=== PATIENT | male | born 1970 | race Caucasian/White ===

== ENCOUNTER 2018-09-07 16:55 | Inpatient (IN) | payer BC ==
[2018-09-07] MEDS ORDERED: BISACODYL 10 MG SUPP PR PRN (17:36)
[2018-09-07] MEDS ORDERED: ACETAMINOPHEN 325 MG TAB PO PRN (17:36)
[2018-09-07] MEDS ORDERED: CARBOXYMETHYLCELLULOSE 1% 0.4 ML DROPERETTE EACHEYE PRN (17:45)
--- NOTE | 2018-09-07 17:48 | PDOREHIP ---
Admission [facility] - Admission - 3 Day Assessment Period Admission Date/Day 1: 09/07/18 Day 2: 09/08/18 Day 3: 09/09/18 - Active Diagnoses Comorbidities and Co-existing Conditions at Admission: [id number]. None of the Above - Skin Conditions # Stage 1 Pressure Ulcers-Admission: 0 # Stage 2 Pressure Ulcers-Admission: 0 # Stage 3 Pressure Ulcers-Admission: 0 # Stage 4 Pressure Ulcers-Admission: 0 # Unstageable Pressure Ulcers (Non-remove Dress)-Admission: 0 # Unstageable Pressure Ulcers (Slough/Eschar)-Admission: 0
--- NOTE | 2018-09-07 20:40 | GHP ---
[f rep st] HISTORY AND PHYSICAL DATE OF ADMISSION: 09/07/2018 TIME OF EVALUATION: 1700 hours. REFERRING FACILITY: [facility]. IMPAIRMENT GROUP: 09, cardiac. DATE OF ONSET: 08/22/2018. REFERRING PHYSICIAN: Dr. Otf Andrews MD. REHABILITATION DIAGNOSIS: Debility with bilateral upper greater than lower extremity weakness secondary to anoxic brain injury due to VT/VF cardiac arrest. ETIOLOGIC DIAGNOSIS: Anoxic brain injury. DATE OF SURGERY: 09/05 and 09/06/18 HISTORY OF PRESENT ILLNESS: Patient is a 47-year-old male admitted to [facility] Emergency Department on 08/22/2018 after he collapsed at work. A co-worker started CPR, and he received 1 shock with AED prior to arrival of EMS. Once EMS arrived on the scene, he was found to be in VT/VF arrest. He was shocked 1 more time and was given 3 rounds of epinephrine. On arrival to the emergency department, he was in torsades and was given magnesium and epinephrine. 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 Cardiac catheterization showed patent vessels, and he was found to have severe dilated cardiomyopathy with initial ejection fraction of 13%. Targeted temperature management was performed , and cardiogenic shock improved. He was subsequently extubated on 08/27. 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 MRI confirmed global anoxic brain injury. Patient's mental status and vision slowly improved during hospitalization. Because of the patient's dilated cardiomyopathy and low ejection fraction, an AICD was placed prior to discharge. This was performed initially on 09/05 and replacement of leads on 09/06. He was then placed on Toprol-XL, amiodarone, and spironolactone. Cardiology team felt that it was unwise to start Entresto secondary to low blood pressure but felt that this may be started as an outpatient as his blood pressure improves. He was evaluated by Dr. Trinh of [facility]. CT of the brain was negative for acute intracranial abnormalities. He was stable medically, although by chart review was noted that he is prone to impulsiveness and had an episode where he fell after he tried to climb over the bed rails. He did not hit his head, and there was no injury sustained secondary to that. His current functional status is that he is max assist x2 and has difficulty maintaining trunk control and control of his upper extremities secondary to weakness and upper extremity/trunk ataxia. Ambulation at [facility] was limited to less than 50 feet, according to his girlfriend who accompanied him today. MRI of the brain obtained on 08/30 showed mild changes in the cortex of the bilateral frontal and parietal lobes concerning for hypoxic injury. The patient initially had fevers which delayed placement of the AICD. This was felt to be due to sinusitis, which was treated with Augmentin. STUDIES AND LABS: During his hospital stay: LFTs were initially elevated as follows: AST 108, ALT 109. NT pro brain natriuretic peptide was 1464 on . Procalcitonin on 08/29 was 0.92. BMP from 09/07/2018 as follows: Sodium 138, potassium 4.2, chloride 108, CO2 of 23, BUN 13, creatinine 0.71, calcium 7.9, glucose 102. White blood count on 09/04 was 8.26. Hemoglobin and hematocrit on 09/04 were 10.4 and 32.1. The patient had multiple imaging studies including chest x-ray, AP and lateral, on 09/07, which showed no radiographic evidence of acute cardiopulmonary disease. Single view of the abdomen showed no obstruction. Nasogastric tube in stomach. CT of the cervical spine from 08/26 showed straightening of the normal cervical lordosis. Alignment otherwise maintained. No fractures or evidence of traumatic subluxation. Multilevel degenerative changes of cervical spine without moderate or severe spinal stenosis. CT of the head without contrast on 09/01 showed no evidence of acute intracranial abnormality by contrast CT of the head without contrast on 08/27 with no evidence of acute intracranial abnormality, acute sinusitis. MRI of the brain without intravenous contrast on 08/30 showed mild global anoxic injury, predominantly involving frontal and parietal cortices. MRI of the cervical spine without contrast on 08/30 revealed no substantial cervical spinal cord signal abnormality or neural foraminal narrowing. PRECAUTIONS: Fall risk. The patient lacks insight as to current level of debility and may be prone to impulsive behavior. Aspiration precautions. Left upper extremity is pinned to the chest wall to prevent movement above level of heart for the next 72 hours. AICD precautions ACTIVE COMORBIDITIES: Hyperthyroidism. PAST MEDICAL HISTORY: Hyperthyroidism, although the past medical records may incorrectly state hypothyroidism. The patient unable to give further details regarding this. PAST SURGICAL HISTORY: Has pinning in one of his elbows but could not recall which one. Status post AICD placement 09/06/2018. PREHOSPITAL MEDICATIONS: None. ADMISSION MEDICATIONS: Amiodarone 200 mg p.o. daily. Carboxymethylcellulose 1 drop each eye 3 times daily p.r.n. Magnesium oxide 400 mg p.o. twice daily. Metoprolol succinate 12.5 mg p.o. daily. Spironolactone 12.5 mg p.o. daily. Flomax 0.4 mg p.o. at bedtime. ALLERGIES: Ibuprofen. PSYCHOSOCIAL HISTORY: He has a girlfriend. He has a 10-year-old son with another woman, but they are currently not residing together. His son lives in [place]. He is a nonsmoker and rarely drinks alcohol. He does not have a history of substance abuse. 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 FAMILY HISTORY: Noncontributory. REVIEW OF SYSTEMS: HEENT: Denies dizziness or tinnitus. Denies jaw pain. CARDIAC: Denies angina-like symptoms. Denies tongue or jaw claudication. PULMONARY: Denies shortness of breath. GASTROINTESTINAL: Denies abdominal pain or constipation. GENITOURINARY: Denies bladder incontinence. Denies dysuria. NEUROLOGICAL: He reports blurred vision at a distance. His girlfriend added that he feels that the room is dark when it is brightly lit. He does not state that he has weakness in the upper or lower extremities, although his girlfriend confirms this. She reports that his strength is returning, but he does have truncal ataxia. He reports intermittent tingling sensation in the right upper extremity. MUSCULOSKELETAL: He denies neck or low back pain. Denies arthralgias or myalgias. The remainder of the 10-point review of systems was negative. PHYSICAL EXAM: VITAL SIGNS: Vital signs are pending. CONSTITUTIONAL: WDWN, pleasant male, NAD. PSYCH: Flat affect. He answered most questions with simple yes or no answers and did not elaborate unless prompted. HEENT: Pupils equal, round, reactive to light and accommodation. EOMI. Mucous membranes are moist. Dentition is good. NECK: No JVD. Normal range of motion right and left lateral rotation, flexion, and extension. CARDIOVASCULAR: Regular rate and rhythm. Possible systolic ejection murmur with heart sounds lateral to the right sternal border. He has a well-healing surgical incision, status post AICD placement. LUNGS: Clear to auscultation bilaterally. ABDOMEN: Soft, nontender. Normoactive bowel sounds in all 4 quadrants. EXTREMITIES: No upper or lower extremity edema. Negative Homans test bilaterally. NEUROLOGIC: He is alert and oriented to place and month but not date. Could not name the season. He was able to name 3/3 objects immediately after they were recited to him and 2/3 objects 5 minutes later, and with prompting, he remembered the 3rd object. He was able to identify colors and shapes. He was able to perform a 3- step sequencing event without too much difficulty. Cranial nerves 2 through 12 were grossly intact. Left upper extremity strength was not tested secondary to cardiac precautions. Right upper extremity: Active right glenohumeral forward flexion 120 degrees with ataxia noted. He does demonstrate 4/5 biceps and triceps, although there is limb ataxia present. 3+ 4-/5 wrist and finger extensors. 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 Lower extremity motor exam : 4+/5 right and left hip flexors, quadriceps, hamstrings, ankle dorsiflexors. Left ankle splint in place. Right ankle boot in place. No upper or lower extremity sensory deficits. CURRENT LEVEL OF FUNCTION: Per the preadmission screen: Diet/feeding/swallowing : Regular diet with thin liquids, max assist with tactile cues, 1-to-1 supervision, 1-to-1 cuing, aspiration PNA, set up suction in the room. Grooming max assist with verbal cuing. Bathing TBA. Dressing max assist. Toileting dependent, bladder dependent. Patient with urinary retention requiring straight catheterization p.r.n. Bowel level of assistance dependent. Bed mobility mod assist x2. Transfers min assist x2 with Fiorella Stedy lift. Equipment FWW balance. Sitting with mod assist. Standing NT. Endurance fair. Gait: Ambulates 10 feet with max assist x2 with verbal and tactile cues. Wheelchair Tilt in Space. Stairs TBA. Cognition MoCA . Patient with excellent recall and mild deficit and word retrieval. Patient requires increased processing time. Safety precautions: Fall, impaired cognition. Lower extremity strength/range of motion: Bilateral lower extremities, able to lift lower extremities off the bed. Upper extremity strength/range of motion: Bilateral upper extremities able to lift but difficulty with fine motor control. Functional status comments: Patient has improved cortical blindness. IMPRESSION: This is a 47-year-old male who had a witnessed cardiac event secondary to ventricular tachycardia/ventricular fibrillation resulting in cardiac arrest. The patient was intubated and later determined to have suffered from anoxic brain injury with resultant encephalopathy and cortical blindness. Per review of medical records and the patient's girlfriend who was present today, he continues to make improvements in his mental status as well as improvement in his vision. He has trunk and upper limb ataxia as well as gait dysfunction, most likely which is due to the anoxic brain injury. He is status post AICD on 09/06. His goal is to complete rehabilitation stay and return to home with his girlfriend with reasonable goals of standby assist for ADLs, ambulation, and performing executive functions. He will have physical, occupational, and speech and language pathology 60 minutes per day for each discipline 5 to 7 days per week. Because he is reported to be a little lethargic in the mornings, his therapies, particularly physical and occupational therapy may have to be scheduled in the late morning or afternoon. PLAN: 1. Ventricular tachycardia/ventricular fibrillation cardiac arrest. He is found to have nonischemic cardiomyopathy with ejection fraction of 16% and is status post AICD on 09/05. Continue metoprolol, amiodarone, and spironolactone. We will monitor for signs of heart failure. Monitor blood pressures daily. 2. Encephalopathy secondary to anoxic brain injury. MRI brain from 08/30 shows global anoxic injury. He has impaired short-term memory, which according to chart review, has been improving. His girlfriend also states that his short- term memory has been improving but is patchy going back to 5 years. He has also demonstrated impulsive behavior which resulted in one fall during previous hospitalization. May consider neuro stimulant to decrease impulsivity. Will discuss with Dr. Dolan. Patient is also very restless at night as reported by nursing staff and girlfriend. Will consider sleep aid that will not affect neuro recovery from anoxic brain injury. 3. Impaired vision/probable cortical blindness, which has been clearly improving, but at some point. OT to evaluate for extent of vision loss. He may benefit from neuro-ophthalmology consult. He would also benefit from evaluation for corrective lenses. 4. Nonischemic cardiomyopathy. Echo on 08/29/2018 showed severe global hypokinesis with ejection fraction of 16%. We will continue to monitor for signs of heart failure and hypertension. Cardiology team was unable to start Entresto secondary to low blood pressure but suggested this may be able to be started as an outpatient. 5. Urinary retention. Monitor daily ins and outs. Bladder scan to measure postvoid residuals x3, and if not elevated, may discontinue. If elevated above 300 cc, then straight cath p.r.n. 6. History of thyroid dysfunction. Premorbidly he was told that he had hypothyroidism. However, lab studies at [facility] showed TSH of 0.016 and FT4 1.32. By chart review, it looks like he was on medications for hyperthyroidism including methimazole and propranolol. We will repeat thyroid function studies during inpatient hospitalization. 7. Deep venous thrombosis prophylaxis. Sequential compression devices have been ordered. Patient was previously on subcutaneous heparin, however, we will not initiate anticoagulant medications at this time. Also hesitant to place patient on anticoagulation as he is impulsive and a fall risk with concerns for head injury. FOLLOWUP: Dr. Trinh, [facility]; Dr. Omar Flores, Cardiology. /[id number]/MODL MTDD
[2018-09-07] MEDS: SENNOSIDES/DOCUSATE SODIUM TAB PO SCH (21:58)
[2018-09-07] MEDS: MAGNESIUM OXIDE 400 MG TAB PO SCH (21:59)
[2018-09-07] MEDS: TAMSULOSIN HCL 0.4 MG CAP PO SCH (21:59)
[2018-09-08 05:27] LABS: PLATELET COUNT 396 10^3/uL (150-400)
[2018-09-08] MEDS: MAGNESIUM OXIDE 400 MG TAB PO SCH ×2 (08:25→23:19)
[2018-09-08] MEDS: METOPROLOL SUCCINATE XR 25 MG TAB PO SCH (08:25)
[2018-09-08] MEDS: SENNOSIDES/DOCUSATE SODIUM TAB PO SCH ×2 (08:25→23:19)
[2018-09-08] MEDS: SPIRONOLACTONE 25 MG TAB PO SCH (08:26)
[2018-09-08] MEDS: AMIODARONE HCL 200 MG TAB PO SCH (08:26)
--- NOTE | 2018-09-08 13:28 | SOAPPROG ---
SOAP Progress Note Assessment/Plan: Assessment: A ventricular tachycardia/ventricular fibrillation cardiac arrest. He is found to have nonischemic cardiomyopathy with ejection fraction of 16% status post AICD on 09/05 with reattachment of leads on 09/06. Continues with left upper extremity postsurgical precautions. Nurse case management is confirming when these restrictions can be lifted. Nurse case management also enquiring about AICD precautions. Continue to monitor for signs of heart failure Encephalopathy secondary to anoxic brain injury. MRI brain from 08/30 shows global anoxic injury. He he has impaired short-term memory. He is unable to form new memory at this time. He demonstrates impulsive behavior with some possible sundowning. Will discuss with Dr. Dolan regarding his thoughts about medications to reduce impulsiveness and to improve sleep hygiene. Nonischemic cardiomyopathy. Echocardiogram on 08/29/2018 shows severe global hypokinesia was ejection fraction of 60%. Continue spironolactone 12.5 mg daily , AMIODARONE AND 200 mg daily, magnesium oxide 400 mg twice daily and Toprol 12.5 mg daily. Cognitive deficits. Speech and language pathology consulted. 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 This continues to improve. Patient was able to read sign on well in room the was 7 ft away. Gait dysfunction-has 4 limb ataxia along with truncal ataxia due to anoxic brain injury. PT consulted for trunk/core strengthening, transfers and gait training. OT for upper extremity strengthening, assistive devices as needed.. May work in concert with physical therapy to optimize trunk control. At Urinary retention. Continue Flomax. Continue to check postvoid residuals and may discontinue after 3rd normal reading History of thyroid dysfunction. Will recheck thyroid function tests. Deep venous thrombosis prophylaxis. Sequential compression devices ordered. Patient was previously on subcutaneous heparin, however we will not initiate anticoagulants medications at time, due to relatively low risk for developing DVT and due to the fact that he is impulsive and a fall risk. Sleep hygiene-because of anoxic brain injury will defer adding sleep agent for now. Will encourage nursing staff to make sure patient is on regular sleep cycle. Follow-up Dr. Keysha steele, [facility], Dr. Purvis, cardiology Plan: 09/08/18 13:24 09/08/18 13:29 Subjective: Nursing reports patient was impulsive during the night and tried to get out of bed several times. Somewhat confused during night. He denies headache. He reports his vision is improving. Denies shortness of breath or anginal like symptoms Objective: Vital Signs Temp Pulse Resp BP Pulse Ox 36.8 C 82 16 108/72 95 09/08/18 05:07 09/08/18 05:07 09/08/18 05:07 09/08/18 05:07 09/08/18 05:07 Laboratory Results 09/08/18 05:03 09/08/18 05:03 09/07/18 09/08/18 09/09/18 05:59 05:59 05:59 Intake Total 100 Output Total 1350 600 Balance -1250 -600 Physical Exam - Physical Exam General Appearance: WD/WN, alert, no apparent distress Neck: normal inspection Respiratory: lungs clear, normal breath sounds, No crackles, No rales, No rhonchi Cardiac/Chest: normal peripheral pulses, regular rate, rhythm, No edema Abdomen: normal bowel sounds, non-tender, soft Extremities: No swelling, No Luis's sign (Neurological exam unchanged from admission 09/07) Neuro/Psych: motor weakness, cognition abnormalities (Impaired short-term memory ) ICD10 Worksheet Patient Problems: Problems Problem Status Onset Anoxic brain injury Acute - ICD10 Problem Qualifiers (1) Anoxic brain injury
--- NOTE | 2018-09-08 15:51 | SOAPPROG ---
SOAP Progress Note Assessment/Plan: Assessment: A ventricular tachycardia/ventricular fibrillation cardiac arrest. He is found to have nonischemic cardiomyopathy with ejection fraction of 16% status post AICD on 09/05 with reattachment of leads on 09/06. Continues with left upper extremity postsurgical precautions. Nurse case management is confirming when these restrictions can be lifted. Nurse case management also enquiring about AICD precautions. Continue to monitor for signs of heart failure Encephalopathy secondary to anoxic brain injury. MRI brain from 08/30 shows global anoxic injury. He he has impaired short-term memory. He is unable to form new memory at this time. He demonstrates impulsive behavior with some possible sundowning. Will discuss with Dr. oDlan regarding his thoughts about medications to reduce impulsiveness and to improve sleep hygiene. Will order roll belt. Will consider a sitter if roll belt who is in adequate. Nursing notified. Nonischemic cardiomyopathy. Echocardiogram on 08/29/2018 shows severe global hypokinesia was ejection fraction of 60%. Continue spironolactone 12.5 mg daily , AMIODARONE AND 200 mg daily, magnesium oxide 400 mg twice daily and Toprol 12.5 mg daily. Cognitive deficits. Speech and language pathology consulted. 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 This continues to improve. Patient was able to read sign on well in room the was 7 ft away. Gait dysfunction-has 4 limb ataxia along with truncal ataxia due to anoxic brain injury. PT consulted for trunk/core strengthening, transfers and gait training. OT for upper extremity strengthening, assistive devices as needed.. May work in concert with physical therapy to optimize trunk control. At Urinary retention. Continue Flomax. Continue to check postvoid residuals and may discontinue after 3rd normal reading History of thyroid dysfunction. Will recheck thyroid function tests. Deep venous thrombosis prophylaxis. Sequential compression devices ordered. Patient was previously on subcutaneous heparin, however we will not initiate anticoagulants medications at time, due to relatively low risk for developing DVT and due to the fact that he is impulsive and a fall risk. Sleep hygiene-because of anoxic brain injury will defer adding sleep agent for now. Will encourage nursing staff to make sure patient is on regular sleep cycle. Follow-up Dr. Keysha steele, [facility], Dr. Purvis, cardiology Plan: 09/08/18 13:24 09/08/18 13:29 09/08/18 15:50 Objective: Vital Signs Temp Pulse Resp BP Pulse Ox 36.8 C 82 16 108/72 95 09/08/18 05:07 09/08/18 05:07 09/08/18 05:07 09/08/18 05:07 09/08/18 05:07 Laboratory Results 09/08/18 05:03 09/08/18 05:03 09/07/18 09/08/18 09/09/18 05:59 05:59 05:59 Intake Total 100 150 Output Total 1350 1000 Balance -1250 -850 ICD10 Worksheet Patient Problems: Problems Problem Status Onset Anoxic brain injury Acute - ICD10 Problem Qualifiers (1) Anoxic brain injury
[2018-09-08] MEDS: TAMSULOSIN HCL 0.4 MG CAP PO SCH (23:19)
[2018-09-09] MEDS: AMIODARONE HCL 200 MG TAB PO SCH (09:21)
[2018-09-09] MEDS: MAGNESIUM OXIDE 400 MG TAB PO SCH ×2 (09:22→21:00)
[2018-09-09] MEDS: METOPROLOL SUCCINATE XR 25 MG TAB PO SCH (09:23)
[2018-09-09] MEDS: SENNOSIDES/DOCUSATE SODIUM TAB PO SCH ×2 (09:24→21:00)
[2018-09-09] MEDS: SPIRONOLACTONE 25 MG TAB PO SCH (09:25)
--- NOTE | 2018-09-09 09:31 | SOAPPROG ---
SOAP Progress Note Assessment/Plan: Assessment: A ventricular tachycardia/ventricular fibrillation cardiac arrest. He is found to have nonischemic cardiomyopathy with ejection fraction of 16% status post AICD on 09/05 with reattachment of leads on 09/06. Continues with left upper extremity postsurgical precautions. Nurse case management is confirming when these restrictions can be lifted. Nurse case management also enquiring about AICD precautions. Continue to monitor for signs of heart failure. LUNGS ARE CLEAR ON EXAM. NO PERIPHERAL EDEMA. WILL INITIATE DAILY WEIGHTS. HE IS ON A 2 G LOW-SODIUM DIET. Encephalopathy secondary to anoxic brain injury. MRI brain from 08/30 shows global anoxic injury. He he has impaired short-term memory. He is unable to form new memory at this time. He demonstrates impulsive behavior with some possible sundowning. Will discuss with Dr. Dolan regarding his thoughts about medications to reduce impulsiveness and to improve sleep hygiene. Will order roll belt. Will consider a sitter if roll belt who is in adequate. Nursing notified. Nonischemic cardiomyopathy. Echocardiogram on 08/29/2018 shows severe global hypokinesia was ejection fraction of 60%. Continue spironolactone 12.5 mg daily , AMIODARONE AND 200 mg daily, magnesium oxide 400 mg twice daily and Toprol 12.5 mg daily. HIS DISCHARGE SUMMARY STATES THAT THEY WERE UNABLE TO START ON ENTRESTO DUE TO LOW BLOOD PRESSURE AND THAT HOPEFULLY THIS CAN BE STARTED AN OUTPATIENT HIS BLOOD PRESSURE IMPROVES. BLOOD PRESSURE TODAY 110/69. WILL CONTACT HIS COSTUME MISTRESS REGARDING PARAMETERS FOR INITIATING ENTRESTO. ORDER PLACED FOR DAILY WEIGHTS. Cognitive deficits. Speech and language pathology consulted. 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 This continues to improve. Patient was able to read sign on well in room the was 7 ft away. Gait dysfunction-has 4 limb ataxia along with truncal ataxia due to anoxic brain injury. PT consulted for trunk/core strengthening, transfers and gait training. OT for upper extremity strengthening, assistive devices as needed.. May work in concert with physical therapy to optimize trunk control. At Urinary retention. Continue Flomax. Continue to check postvoid residuals and may discontinue after 3rd normal reading History of thyroid dysfunction. Will recheck thyroid function tests. Deep venous thrombosis prophylaxis. Sequential compression devices ordered. Patient was previously on subcutaneous heparin, however we will not initiate anticoagulants medications at time, due to relatively low risk for developing DVT and due to the fact that he is impulsive and a fall risk. Sleep hygiene-NURSING STAFF REPORTS PATIENT SLEPT WELL LAST NIGHT. MELATONIN 3 MG AT BEDTIME P.R.N. Follow-up : [facility], Dr. Purvis, cardiology 09/09/18 09:31 Subjective: No complaints this morning. Denies chest pain. Denies shortness of breath. Objective: Vital Signs Temp Pulse Resp BP Pulse Ox 36.8 C 83 16 110/69 99 09/09/18 08:00 09/09/18 08:00 09/09/18 08:00 09/09/18 08:00 09/09/18 08:00 Laboratory Results 09/08/18 05:03 09/08/18 05:03 09/08/18 09/09/18 09/10/18 05:59 05:59 05:59 Intake Total 100 150 Output Total 1350 1500 Balance -1250 -1350 Physical Exam - Physical Exam General Appearance: WD/WN, alert, no apparent distress, other (Identifies place as [facility], could not identify that he was on the rehab floor. Cannot identify year. Did not identify why he was here.) EENT: PERRL/EOMI, pharynx normal, other (Oral mucosa moist) Neck: normal inspection Respiratory: lungs clear, normal breath sounds, No crackles, No rales Cardiac/Chest: regular rate, rhythm, No edema Abdomen: normal bowel sounds, non-tender, soft Skin: normal color, warm/dry Extremities: other (Left arm bound to abdomen as part of cardiac precautions), No swelling, No Luis's sign Neuro/Psych: alert, motor weakness, cognition abnormalities (Four limb ataxia, trunk ataxia), No oriented x 3 ICD10 Worksheet Patient Problems: Problems Problem Status Onset Anoxic brain injury Acute - ICD10 Problem Qualifiers (1) Anoxic brain injury
[2018-09-09] MEDS: MELATONIN 3 MG TAB PO PRN (21:00)
[2018-09-09] MEDS: TAMSULOSIN HCL 0.4 MG CAP PO SCH (21:00)
[2018-09-10] MEDS: AMIODARONE HCL 200 MG TAB PO SCH (09:16)
[2018-09-10] MEDS: MAGNESIUM OXIDE 400 MG TAB PO SCH ×2 (09:16→21:12)
[2018-09-10] MEDS: SENNOSIDES/DOCUSATE SODIUM TAB PO SCH ×2 (09:17→21:12)
[2018-09-10] MEDS: METOPROLOL SUCCINATE XR 25 MG TAB PO SCH (09:17)
[2018-09-10] MEDS: SPIRONOLACTONE 25 MG TAB PO SCH (09:20)
--- NOTE | 2018-09-10 11:08 | SOAPPROG ---
SOAP Progress Note Assessment/Plan: Assessment: A ventricular tachycardia/ventricular fibrillation cardiac arrest. He is found to have nonischemic cardiomyopathy with ejection fraction of 16% status post AICD on 09/05 with reattachment of leads on 09/06. Nurse case management is confirming when these restrictions can be lifted. Nurse case management also enquiring about AICD precautions. Continue to monitor for signs of heart failure. LUNGS ARE CLEAR ON EXAM. NO PERIPHERAL EDEMA. WILL INITIATE DAILY WEIGHTS. HE IS ON A 2 G LOW-SODIUM DIET. LEFT UPPER EXTREMITY RESTRICTIONS. DISCUSSED WITH ON-CALL ABRASIVE WORKER, DR. GLENN PARRISH, CAN REMOVE SLING AND PINNING TO CHEST WALL. NO SHOULDER ABDUCTION GREATER THAN 90. Encephalopathy secondary to anoxic brain injury. MRI brain from 08/30 shows global anoxic injury. He he has impaired short-term memory. He is unable to form new memory at this time. He demonstrates impulsive behavior with some possible sundowning. Will discuss with Dr. Dolan regarding his thoughts about medications to reduce impulsiveness and to improve sleep hygiene. Will order roll belt. Will consider a sitter if roll belt who is in adequate. Nursing notified. Nonischemic cardiomyopathy. HIS ABRASIVE WORKER IS DR. WAI HUTCHINS. DISCUSSED CASE WITH ON-CALL ABRASIVE WORKER, DR. GLENN PARRISH TO CONFIRM THAT LEFT UPPER EXTREMITY RESTRICTIONS COULD BE LIFTED IN TERMS OF HAVING LEFT ARM IN SLING AND PIN TO CHEST WALL. SHE IS IN AGREEMENT WITH THIS AND WILL PLACE NEW RESTRICTIONS OF NO SHOULDER ABDUCTION GREATER THAN [address] WAS [address] DR[address] PARRISH . ALSO DISCUSSED THE INITIATION OF ENTRESTO WHICH SHE STATES CAN BE STARTED ONCE SYSTOLIC BLOOD PRESSURE IS CONSISTENTLY ABOVE 100. GIVEN HEALTH LEAD SYSTOLIC BLOOD PRESSURE MEASUREMENT OF 96, WILL HOLD OFF ON BEGINNING THIS TODAY. SHE SAID A WAY TO WORK UP TO BEGINNING ENTRESTO, LOW- DOSE VALSARTAN COULD BE INITIATED. Echocardiogram on 08/29/2018 shows severe global hypokinesia was ejection fraction of 60%. Continue spironolactone 12.5 mg daily, AMIODARONE AND 200 mg daily, magnesium oxide 400 mg twice daily and Toprol 12.5 mg daily. HIS DISCHARGE SUMMARY STATES THAT THEY WERE UNABLE TO START ON ENTRESTO DUE TO LOW BLOOD PRESSURE AND THAT HOPEFULLY THIS CAN BE STARTED AN OUTPATIENT HIS BLOOD PRESSURE IMPROVES. BLOOD PRESSURE TODAY 110/69. ORDER PLACED FOR DAILY WEIGHTS. Cognitive deficits. Speech and language pathology consulted. 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 This continues to improve. Patient was able to read sign on well in room the was 7 ft away. Gait dysfunction-has 4 limb ataxia along with truncal ataxia due to anoxic brain injury. PT consulted for trunk/core strengthening, transfers and gait training. OT for upper extremity strengthening, assistive devices as needed.. May work in concert with physical therapy to optimize trunk control. At Urinary retention. Continue Flomax. Continue to check postvoid residuals and may discontinue after 3rd normal reading History of thyroid dysfunction. Will recheck TSH TUESDAY MORNING. Deep venous thrombosis prophylaxis. Sequential compression devices ordered. Patient was previously on subcutaneous heparin, however we will not initiate anticoagulants medications at time, due to relatively low risk for developing DVT and due to the fact that he is impulsive and a fall risk. Sleep hygiene-NURSING STAFF REPORTS PATIENT SLEPT WELL LAST NIGHT. MELATONIN 3 MG AT BEDTIME P.R.N. Follow-up : [facility], Dr. Purvis, cardiology 09/10/18 11:01 Subjective: NURSING REPORTS PATIENT FELL EARLY A.M. THIS MORNING WHILE BEING ASSISTED TO THE BATHROOM BY NURSING STAFF. HAS PATIENT STARTED TO FALL PATIENT'S LEFT ARM WAS GRABBED AND EXTENDED A LITTLE BIT. PATIENT CURRENTLY DENIES LEFT CHEST WALL OR SHOULDER PAIN. DENIES PAIN AND INCISION SITE. HE DOES NOT REPORT ANGINAL LIKE SYMPTOMS, JAW OR TONGUE CLAUDICATION. DENIES IRREGULAR HEART RATE OR SHORTNESS OF BREATH. Objective: Vital Signs Temp Pulse Resp BP Pulse Ox 37.0 C 80 16 116/71 95 09/10/18 07:03 09/10/18 09:02 09/10/18 07:03 09/10/18 09:02 09/10/18 09:02 Laboratory Results 09/08/18 05:03 09/08/18 05:03 09/09/18 09/10/18 09/11/18 05:59 05:59 05:59 Intake Total 150 1810 Output Total 1500 1165 Balance -1350 -265 Physical Exam - Physical Exam General Appearance: WD/WN, alert, no apparent distress EENT: PERRL/EOMI Neck: non-tender, full range of motion, supple, other Respiratory: lungs clear, normal breath sounds, No crackles, No rales, No rhonchi Cardiac/Chest: normal peripheral pulses, regular rate, rhythm, No edema Abdomen: normal bowel sounds, non-tender Skin: other (SURGICAL INCISION SITE HEALING WELL, NO ERYTHEMA OR INDURATION) Extremities: No swelling, No Luis's sign Neuro/Psych: alert, normal mood/affect, motor weakness (FOR LIMB AND TRUNK ATAXIA. NO CHANGE FROM ADMISSION H&P.), No oriented x 3 ICD10 Worksheet Patient Problems: Problems Problem Status Onset Anoxic brain injury Acute - ICD10 Problem Qualifiers (1) Anoxic brain injury
[2018-09-10] MEDS: TAMSULOSIN HCL 0.4 MG CAP PO SCH (21:12)
[2018-09-11] MEDS: MAGNESIUM OXIDE 400 MG TAB PO SCH ×2 (08:40→22:01)
[2018-09-11] MEDS: METOPROLOL SUCCINATE XR 25 MG TAB PO SCH (08:40)
[2018-09-11] MEDS: AMIODARONE HCL 200 MG TAB PO SCH (08:40)
[2018-09-11] MEDS: SPIRONOLACTONE 25 MG TAB PO SCH (08:41)
[2018-09-11] MEDS: SENNOSIDES/DOCUSATE SODIUM TAB PO SCH ×2 (08:43→22:01)
--- NOTE | 2018-09-11 12:13 | SOAPPROG ---
SOAP Progress Note Assessment/Plan: Assessment: Hypoxic/ischemic encephalopathy with ataxia. * Initial functional independence measure is 52 on 09/11/2018. Contact guard assist for transfers. Contact guard assist ambulation with walker for 75 ft or with hand-held assist or minimal assist without walker. Upper body and lower body dressing require moderate assist. Grooming and hygiene require minimal assist. Toileting requires minimal assist. He is using built-up utensils for meals due to ataxia. * Continue PT and OT to optimize mobility and activities of daily living. 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 * Global memory loss including short-term working and some long-term memory loss. 0 aloe G was 27 on 09/10/2018 and is 25 on 09/11/2018. Attention seems to be intact. He is impulsive. * Continue NREMT. Dilated cardiomyopathy of unclear etiology. * Continue amiodarone, metoprolol and spironolactone. * If systolic blood pressure is consistently above 110, will start sec sacibitril/valsartan combination, per instructions of Cardiology. Recent pacer/ICD placement. Placement 09/05/2018, lead replacement 09/06/2018. * Family is concerned about possible dislodgement of leads with recent near fall in which he caught himself with left arm. * Pacer pocket is intact with no signs or symptoms of dehiscence or infection. * Discussed with Cardiology PA David Lord, 09/11/2018. Continue restrictions of not to raise arm above 90 degrees, 10 lb weight-bearing restriction for 1 week and then 20 lb weight-bearing restriction, and advised to continue to use arm immobilizer at night due to impulsivity and memory loss, to ensure compliance. * Spoke to [employer] customer success representative, 09/11/2018, following advice of David Lord. [employer] rep will come to rehabilitation unit 09/11/2018 to interrogate device. History of urinary retention. Continue tamsulosin. History of hyperthyroidism. TSH was mildly suppressed in the hospital, with normal free T4. * Normal TSH on 09/11/2018. Monitor for signs or symptoms of hyperthyroidism. Should have repeat TSH in 4-6 weeks. DVT prophylaxis. He is low risk for DVT, and high risk for fall which could result in a bleed. DISPOSITION: Attended staffing, 15 min, 09/11/2018. Discussed with case management, dietitian, nursing, PT, OT, NREMT. He has multiple stairs to climb in the home. Girlfriend is available 24 hr a day at present to assist. However he should achieve functional independence for mobility and most ADLs for a safe discharge. Tentative discharge date set for 09/26/2018. Follow-up : [facility]; Dr. Purvis, cardiology scheduled for 09/20/2018. 09/11/18 12:13 Subjective: No comlaints. Not in pain. Slept well. No cough or dyspnea. Girlfriend reports that he had right calf pain. Objective: Vital Signs Temp Pulse Resp BP Pulse Ox 36.8 C 89 16 109/72 97 09/11/18 08:00 09/11/18 08:00 09/11/18 08:00 09/11/18 08:00 09/11/18 08:00 Laboratory Results 09/08/18 05:03 09/08/18 05:03 09/10/18 09/11/18 09/12/18 05:59 05:59 05:59 Intake Total 1810 2100 Output Total 2075 1690 100 Balance -265 410 -100 - Time Spent With Patient Time Spent With Patient: Greater than 35 min floor time today, including more than 50% of time in coordination of care during staffing meeting and in discussions with cardiology PA as well as [employer] customer success representative, and counseling patient and girlfriend. Physical Exam - Physical Exam General Appearance: WD/WN, alert, no apparent distress Respiratory: normal breath sounds, No crackles, No rhonchi, No wheezing Cardiac/Chest: regular rate, rhythm, JVD, No edema Skin: normal color, warm/dry, other (Left chest incision at pacer/ICD site with minimal eschar, minimal brown drainage on bandage, no erythema or tenderness. Incision appears to be glued) Neuro/Psych: alert, normal mood/affect, abnormal gait ICD10 Worksheet Patient Problems: Problems Problem Status Onset Anoxic brain injury Acute
[2018-09-11] MEDS: TAMSULOSIN HCL 0.4 MG CAP PO SCH (22:01)
[2018-09-12] MEDS: SENNOSIDES/DOCUSATE SODIUM TAB PO SCH ×2 (10:05→21:18)
[2018-09-12] MEDS: SPIRONOLACTONE 25 MG TAB PO SCH (10:05)
[2018-09-12] MEDS: MAGNESIUM OXIDE 400 MG TAB PO SCH ×2 (10:05→21:18)
[2018-09-12] MEDS: METOPROLOL SUCCINATE XR 25 MG TAB PO SCH (10:06)
[2018-09-12] MEDS: AMIODARONE HCL 200 MG TAB PO SCH (10:06)
--- NOTE | 2018-09-12 11:56 | SOAPPROG ---
SOAP Progress Note Assessment/Plan: Assessment: Hypoxic/ischemic encephalopathy with ataxia, due to ventricular fibrillation cardiac arrest on 08/22/2018. * Initial functional independence measure is 52 on 09/11/2018. Contact guard assist for transfers. Contact guard assist ambulation with walker for 75 ft or with hand-held assist or minimal assist without walker. Upper body and lower body dressing require moderate assist. Grooming and hygiene require minimal assist. Toileting requires minimal assist. He is using built-up utensils for meals due to ataxia. * Continue PT and OT to optimize mobility and activities of daily living. 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 * Global memory loss including short-term working and some long-term memory loss. 0LOG was 27 on 09/10/2018 and is 25 on 09/11/2018. Attention seems to be intact. He is impulsive. * Continue SAMPLE DISPLAY PREPARER. Hypotension, unclear etiology, 09/12/2018. Not orthostatic. * CBC, BMP with slight worsening of anemia; Na 130. Ordered labs re SIA. * D/W Dr. Garcia, 09/12/2018 by phone, covering for his production reproduction manager Dr. Flores. Advised starting lisinopril 2.5 mg QD if BP tolerates; best to keep BP above 100 systolic. Not concerned re Na of 130; not too low in his circumstance. Low-grade fever, 09/12/2018. * UA normal. No sign of pocket infection. No cough, hypoxia or tachypnea. WBCs normal though monocytosis. Will get blood cultures if temperature gets above 100. Dilated cardiomyopathy of unclear etiology. * Continue amiodarone, metoprolol and spironolactone. * If systolic blood pressure is consistently above 110, will start sacibitril/ valsartan combination, per instructions of Cardiology. Recent pacer/ICD placement. Placement 09/05/2018, lead replacement 09/06/2018. * Family is concerned about possible dislodgement of leads with recent near fall in which he caught himself with left arm. * Pacer pocket is intact with no signs or symptoms of dehiscence or infection. * Discussed with Cardiology RENE Lord, 09/11/2018. Continue restrictions of not to raise arm above 90 degrees, 10 lb weight-bearing restriction for 1 week and then 20 lb weight-bearing restriction, and advised to continue to use arm immobilizer at night due to impulsivity and memory loss, to ensure compliance. * Spoke to [employer] in home sales representative, 09/11/2018, following advice of David Lord. [employer] rep came to rehabilitation unit 09/11/2018 and interrogated device. No malfunction. History of urinary retention. Continue tamsulosin. History of hyperthyroidism. TSH was mildly suppressed in the hospital, with normal free T4. * Normal TSH on 09/11/2018. Monitor for signs or symptoms of hyperthyroidism. Should have repeat TSH in 4-6 weeks. DVT prophylaxis. He is low risk for DVT, and high risk for fall which could result in a bleed. DISPOSITION: Attended staffing, 15 min, 09/11/2018. Discussed with case management, dietitian, nursing, PT, OT, SAMPLE DISPLAY PREPARER. He has multiple stairs to climb in the home. Girlfriend is available 24 hr a day at present to assist. However he should achieve functional independence for mobility and most ADLs for a safe discharge. Tentative discharge date set for 09/26/2018. Follow-up : [facility]; Dr. Purvis, cardiology scheduled for 09/20/2018. 09/12/18 21:31 Subjective: Nurse noted hypotension. Metoprolol was held. He denies fevers, chills, cough , dyspnea, dysuria or urinary frequency. He is not in pain. He has a good appetite. No nausea/vomiting/constipation/diarrhea. He does not feel dizzy or lightheaded when he stands up. Objective: Vital Signs Temp Pulse Resp BP Pulse Ox 37.3 C 84 20 93/64 L 92 09/12/18 08:00 09/12/18 08:00 09/12/18 08:00 09/12/18 08:00 09/12/18 08:00 Laboratory Results 09/08/18 05:03 09/08/18 05:03 09/11/18 09/12/18 09/13/18 05:59 05:59 05:59 Intake Total 2100 600 Output Total 1690 2000 Balance 410 -1400 Physical Exam - Physical Exam General Appearance: WD/WN, alert, no apparent distress Respiratory: normal breath sounds, No crackles, No rhonchi, No wheezing Cardiac/Chest: regular rate, rhythm, other (Distant heart sounds), No edema, No diastolic murmur, No systolic murmur Abdomen: normal bowel sounds, non-tender, soft, No distended Skin: normal color, warm/dry Neuro/Psych: alert, normal mood/affect ICD10 Worksheet Patient Problems: Problems Problem Status Onset Anoxic brain injury Acute
[2018-09-12 18:20] LABS: PLATELET COUNT 294 10^3/uL (150-400)
[2018-09-12] MEDS: TAMSULOSIN HCL 0.4 MG CAP PO SCH (21:18)
[2018-09-12] MEDS: MELATONIN 3 MG TAB PO PRN (21:18)
[2018-09-13] MEDS: METOPROLOL SUCCINATE XR 25 MG TAB PO SCH (08:56)
[2018-09-13] MEDS: POLYETHYLENE GLYCOL 3350 17 GM PKT PO PRN (08:56)
[2018-09-13] MEDS: MAGNESIUM OXIDE 400 MG TAB PO SCH ×2 (08:56→21:11)
[2018-09-13] MEDS: AMIODARONE HCL 200 MG TAB PO SCH (08:57)
[2018-09-13] MEDS: SPIRONOLACTONE 25 MG TAB PO SCH (08:57)
[2018-09-13] MEDS: SENNOSIDES/DOCUSATE SODIUM TAB PO SCH ×2 (08:58→21:12)
--- NOTE | 2018-09-13 09:42 | SOAPPROG ---
SOAP Progress Note Assessment/Plan: Assessment: Hypoxic/ischemic encephalopathy with ataxia, due to ventricular fibrillation cardiac arrest on 08/22/2018. * Initial functional independence measure is 52 on 09/11/2018. Contact guard assist for transfers. Contact guard assist ambulation with walker for 75 ft or with hand-held assist or minimal assist without walker. Upper body and lower body dressing require moderate assist. Grooming and hygiene require minimal assist. Toileting requires minimal assist. He is using built-up utensils for meals due to ataxia. * Continue PT and OT to optimize mobility and activities of daily living. 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 * Global memory loss including short-term working and some long-term memory loss. 0LOG was 27 on 09/10/2018 and is 25 on 09/11/2018. Attention seems to be intact. He is impulsive. * Continue OVERHEAD IRRIGATOR. Hypotension, unclear etiology, 09/12/2018. Not orthostatic. * CBC, BMP with slight worsening of anemia; Na 130. Ordered labs re SIADH. * D/W Dr. Garcia, 09/12/2018 by phone, covering for his jalousies installer Dr. Flores. Advised starting lisinopril 2.5 mg QD if BP tolerates; best to keep BP above 100 systolic. Not concerned re Na of 130; not too low in his circumstance. * BP improved, 09/13/2018. Low-grade fever, 09/12/2018. * UA normal. No sign of pocket infection. No cough, hypoxia or tachypnea. WBCs normal though monocytosis. Will get blood cultures if temperature gets above 100. Dilated cardiomyopathy of unclear etiology. * Continue amiodarone, metoprolol and spironolactone. * If systolic blood pressure is consistently above 110, will start sacibitril/ valsartan combination, per instructions of Cardiology. Recent pacer/ICD placement. Placement 09/05/2018, lead replacement 09/06/2018. * Family is concerned about possible dislodgement of leads with recent near fall in which he caught himself with left arm. * Pacer pocket is intact with no signs or symptoms of dehiscence or infection. * Discussed with Cardiology RENE Lord, 09/11/2018. Continue restrictions of not to raise arm above 90 degrees, 10 lb weight-bearing restriction for 1 week and then 20 lb weight-bearing restriction, and advised to continue to use arm immobilizer at night due to impulsivity and memory loss, to ensure compliance. * Spoke to [employer] telemarketing representative, 09/11/2018, following advice of David Lord. [employer] rep came to rehabilitation unit 09/11/2018 and interrogated device. No malfunction. History of urinary retention. Continue tamsulosin. History of hyperthyroidism. TSH was mildly suppressed in the hospital, with normal free T4. * Normal TSH on 09/11/2018. Monitor for signs or symptoms of hyperthyroidism. Should have repeat TSH in 4-6 weeks. DVT prophylaxis. He is low risk for DVT, and high risk for fall which could result in a bleed. DISPOSITION: Attended staffing, 15 min, 09/11/2018. Discussed with case management, dietitian, nursing, PT, OT, OVERHEAD IRRIGATOR. He has multiple stairs to climb in the home. Girlfriend is available 24 hr a day at present to assist. However he should achieve functional independence for mobility and most ADLs for a safe discharge. Tentative discharge date set for 09/26/2018. Follow-up : [facility]; Dr. Purvis, cardiology scheduled for 09/20/2018. 09/13/18 09:40 Subjective: No complaints. Feeling better this morning. Denies dysuria, fevers, chills. No cough or dyspnea. Slept okay. Has some left arm pain where he had a blood draw. Objective: Vital Signs Temp Pulse Resp BP Pulse Ox 36.9 C 83 16 112/71 94 09/13/18 07:31 09/13/18 07:31 09/13/18 07:31 09/13/18 07:31 09/13/18 07:31 Laboratory Results 09/12/18 17:56 09/12/18 17:56 09/12/18 09/13/18 09/14/18 05:59 05:59 05:59 Intake Total 600 1340 360 Output Total 2000 2700 400 Balance -1400 -1360 -40 Physical Exam - Physical Exam General Appearance: WD/WN, alert, no apparent distress Respiratory: normal breath sounds, No crackles, No rhonchi, No wheezing Cardiac/Chest: regular rate, rhythm, JVD, No edema, No diastolic murmur, No systolic murmur Skin: normal color, warm/dry Neuro/Psych: alert, normal mood/affect ICD10 Worksheet Patient Problems: Problems Problem Status Onset Anoxic brain injury Acute
[2018-09-13] MEDS: MELATONIN 3 MG TAB PO PRN (21:11)
[2018-09-13] MEDS: TAMSULOSIN HCL 0.4 MG CAP PO SCH (21:11)
[2018-09-14] MEDS: SPIRONOLACTONE 25 MG TAB PO SCH (08:39)
[2018-09-14] MEDS: MAGNESIUM OXIDE 400 MG TAB PO SCH ×2 (08:40→21:31)
[2018-09-14] MEDS: AMIODARONE HCL 200 MG TAB PO SCH (08:40)
[2018-09-14] MEDS: METOPROLOL SUCCINATE XR 25 MG TAB PO SCH (08:40)
[2018-09-14] MEDS: SENNOSIDES/DOCUSATE SODIUM TAB PO SCH ×2 (08:41→21:31)
--- NOTE | 2018-09-14 13:58 | SOAPPROG ---
SOAP Progress Note Assessment/Plan: Assessment: Hypoxic/ischemic encephalopathy with ataxia, due to ventricular fibrillation cardiac arrest on 08/22/2018. * Initial functional independence measure is 52 on 09/11/2018. Contact guard assist for transfers. Contact guard assist ambulation with walker for 75 ft or with hand-held assist or minimal assist without walker. Upper body and lower body dressing require moderate assist. Grooming and hygiene require minimal assist. Toileting requires minimal assist. He is using built-up utensils for meals due to ataxia. * Continue PT and OT to optimize mobility and activities of daily living. 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 * Global memory loss including short-term working and some long-term memory loss. 0LOG ranging from 24-27 over past several days as of 09/14/2018. Has some retention of events from previous stay. Attention seems to be intact. He is impulsive. * Continue KETTLE CLEANER. Left upper extremity tenderness and swelling, 09/14/2018. * US showed DVT subclavian, axial, basilic and brachial veins. Girlfriend reported that he had lines in left arm in the hospital. * Treat with enoxaparin starting afternoon 09/14/2018. Will determine what oral anticoagulant to initiate depending on his insurance. * Continue immobilizer to left arm at night but strap around upper arm should not be tight. Discussed with nursing. Hypotension, unclear etiology, 09/12/2018. Not orthostatic. * CBC, BMP with slight worsening of anemia; Na 130. 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 * D/W Dr. Garcia, 09/12/2018 by phone, covering for his home care scheduler Dr. Flores. Advised starting lisinopril 2.5 mg QD if BP tolerates; best to keep BP above 100 systolic. Not concerned re Na of 130; not too low in his circumstance. Would start valsartan at low dose if his blood pressure is consistently above 110 systolic per prior Cardiology recommendations. * BP improved, 09/13/2018. Low-grade fever, 09/12/2018. * UA normal. No sign of pocket infection. No cough, hypoxia or tachypnea. WBCs normal though monocytosis. Will get blood cultures if temperature gets above 100. Dilated cardiomyopathy of unclear etiology. * Continue amiodarone, metoprolol and spironolactone. * If systolic blood pressure is consistently above 110, will start sacibitril/ valsartan combination, per instructions of Cardiology. Recent pacer/ICD placement. Placement 09/05/2018, lead replacement 09/06/2018. * Family is concerned about possible dislodgement of leads with recent near fall in which he caught himself with left arm. * Pacer pocket is intact with no signs or symptoms of dehiscence or infection. * Discussed with Cardiology PA David Lord, 09/11/2018. Continue restrictions of not to raise arm above 90 degrees, 10 lb weight-bearing restriction for 1 week and then 20 lb weight-bearing restriction, and advised to continue to use arm immobilizer at night due to impulsivity and memory loss, to ensure compliance. * Spoke to [employer] business process representative, 09/11/2018, following advice of David Lord. [employer] rep came to rehabilitation unit 09/11/2018 and interrogated device. No malfunction. History of urinary retention. Continue tamsulosin. History of hyperthyroidism. TSH was mildly suppressed in the hospital, with normal free T4. * Normal TSH on 09/11/2018. Monitor for signs or symptoms of hyperthyroidism. Should have repeat TSH in 4-6 weeks. DVT prophylaxis. He is low risk for DVT, and high risk for fall which could result in a bleed. DISPOSITION: Attended staffing, 15 min, 09/11/2018. Discussed with case management, dietitian, nursing, PT, OT, KETTLE CLEANER. He has multiple stairs to climb in the home. Girlfriend is available 24 hr a day at present to assist. She has been encouraged to not accompany patient to therapy sessions and she tends to assist, which interferes with assessment and development of independence. Goal is functional independence for mobility and most ADLs for a safe discharge. Tentative discharge date set for 09/26/2018. Follow-up : [facility]; Dr. Purvis, cardiology scheduled for 2018. Will check CBC and BMP prior to Cardiology appointment. 09/14/18 13:51 09/14/18 15:10 Subjective: No complaints. Slept well. Not in pain. OT notes swelling of her left upper extremity and tenderness medially above the elbow. Objective: Vital Signs Temp Pulse Resp BP Pulse Ox 37.0 C 74 18 117/78 93 09/14/18 07:56 09/14/18 07:56 09/14/18 07:56 09/14/18 07:56 09/14/18 07:56 Laboratory Results 09/12/18 17:56 09/12/18 17:56 09/13/18 09/14/18 09/15/18 05:59 05:59 05:59 Intake Total 1340 1360 900 Output Total 2700 650 Balance -1360 710 900 Physical Exam - Physical Exam General Appearance: WD/WN, alert, no apparent distress Respiratory: normal breath sounds, No crackles, No rhonchi, No wheezing Cardiac/Chest: regular rate, rhythm, No edema, No JVD, No diastolic murmur, No systolic murmur Skin: normal color, warm/dry Extremities: other (Left arm with peripheral venous distention especially over the forearm. Mild edema. Tenderness medially just above the elbow.) Neuro/Psych: alert, normal mood/affect, abnormal gait (Observed ambulating with PT, normal speed and lower extremity gait, reduced arm swing, occasional near loss of balance.) ICD10 Worksheet Patient Problems: Problems Problem Status Onset Anoxic brain injury Acute
[2018-09-14] MEDS: ENOXAPARIN 80 MG/0.8 ML SYR SC SCH ×2 (15:15→21:31)
[2018-09-14] MEDS: TAMSULOSIN HCL 0.4 MG CAP PO SCH (21:31)
[2018-09-14] MEDS: MELATONIN 3 MG TAB PO PRN (21:31)
[2018-09-15] MEDS: ENOXAPARIN 80 MG/0.8 ML SYR SC SCH ×2 (08:35→20:50)
[2018-09-15] MEDS: AMIODARONE HCL 200 MG TAB PO SCH (08:37)
[2018-09-15] MEDS: MAGNESIUM OXIDE 400 MG TAB PO SCH ×2 (08:37→20:49)
[2018-09-15] MEDS: METOPROLOL SUCCINATE XR 25 MG TAB PO SCH (08:38)
[2018-09-15] MEDS: SPIRONOLACTONE 25 MG TAB PO SCH (08:38)
[2018-09-15] MEDS: SENNOSIDES/DOCUSATE SODIUM TAB PO SCH ×2 (08:39→20:50)
--- NOTE | 2018-09-15 12:00 | SOAPPROG ---
SOAP Progress Note Assessment/Plan: Assessment: Hypoxic/ischemic encephalopathy with ataxia, due to ventricular fibrillation cardiac arrest on 08/22/2018. * Initial functional independence measure is 52 on 09/11/2018. Contact guard assist for transfers. Contact guard assist ambulation with walker for 75 ft or with hand-held assist or minimal assist without walker. Upper body and lower body dressing require moderate assist. Grooming and hygiene require minimal assist. Toileting requires minimal assist. * Continue PT and OT to optimize mobility and activities of daily living. 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 * Global memory loss including short-term working and some long-term memory loss. 0LOG ranging from 24-27 over past several days as of 09/15/2018. Has some retention of events from previous stay. Attention seems to be intact. He is impulsive and has significantly reduced insight. * Continue MANAGEMENT SPECIALIST. Left upper extremity tenderness and swelling, 09/14/2018. * US showed DVT subclavian, axial, basilic and brachial veins. Girlfriend reported that he had lines in left arm in the hospital. * Treat with enoxaparin starting afternoon 09/14/2018. Will determine what oral anticoagulant to initiate depending on his insurance. * Continue immobilizer to left arm at night but strap around upper arm should not be tight. Discussed with nursing. Hypotension, unclear etiology, 09/12/2018. Not orthostatic. * CBC, BMP with slight worsening of anemia; Na 130. 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 * D/W Dr. Garcia, 09/12/2018 by phone, covering for his hand clerical verifier Dr. Flores. Advised starting lisinopril 2.5 mg QD if BP tolerates; best to keep BP above 100 systolic. Not concerned re Na of 130; not too low in his circumstance. * BP improved since 09/13/2018. Initiate valsartan per Cardiology recommendations starting afternoon of 09/15/2018, at 40 mg twice daily. Dilated cardiomyopathy of unclear etiology. * Continue amiodarone, metoprolol and spironolactone. * Systolic blood pressure is consistently above 110 as of 09/15/2018. Starting valsartan as above. Plan to start sacibitril/valsartan combination, per instructions of Cardiology, if blood pressure remains adequate. Recent pacer/ICD placement. Placement 09/05/2018, lead replacement 09/06/2018. * Family is concerned about possible dislodgement of leads with recent near fall in which he caught himself with left arm. * Pacer pocket is intact with no signs or symptoms of dehiscence or infection. * Discussed with Cardiology PA David Lord, 09/11/2018. Continue restrictions of not to raise arm above 90 degrees, 10 lb weight-bearing restriction for 1 week and then 20 lb weight-bearing restriction, and advised to continue to use arm immobilizer at night due to impulsivity and memory loss, to ensure compliance. * Spoke to [employer] entry level account representative, 09/11/2018, following advice of David Lord. [employer] rep came to rehabilitation unit 09/11/2018 and interrogated device. No malfunction. Low-grade fever, 09/12/2018. * UA normal. No sign of pocket infection. No cough, hypoxia or tachypnea. WBCs normal though monocytosis. Will get blood cultures if temperature gets above 100. History of urinary retention. Continue tamsulosin. History of hyperthyroidism. TSH was mildly suppressed in the hospital, with normal free T4. * Normal TSH on 09/11/2018. Monitor for signs or symptoms of hyperthyroidism. Should have repeat TSH in 4-6 weeks. DVT prophylaxis. He is low risk for DVT, and high risk for fall which could result in a bleed. DISPOSITION: Attended staffing, 15 min, 09/11/2018. Discussed with case management, dietitian, nursing, PT, OT, MANAGEMENT SPECIALIST. He has multiple stairs to climb in the home. Girlfriend is available 24 hr a day at present to assist. She has been encouraged to not accompany patient to therapy sessions and she tends to assist, which interferes with assessment and development of independence. Goal is functional independence for mobility and most ADLs for a safe discharge. Tentative discharge date set for 09/26/2018. Follow-up : [facility]; Dr. Purvis, cardiology scheduled for 2018. Will check CBC and BMP prior to Cardiology appointment. 09/15/18 11:55 Subjective: No complaints. Slept well. Not in pain. No cough or dyspnea, no fevers or chills. Objective: Vital Signs Temp Pulse Resp BP Pulse Ox 36.4 C 77 12 115/79 98 09/15/18 08:00 09/15/18 08:00 09/15/18 08:00 09/15/18 08:00 09/15/18 08:00 Laboratory Results 09/12/18 17:56 09/12/18 17:56 09/14/18 09/15/18 09/16/18 05:59 05:59 05:59 Intake Total 1360 1550 770 Output Total 650 Balance 710 1550 770 Physical Exam - Physical Exam General Appearance: WD/WN, alert, no apparent distress Respiratory: normal breath sounds, No crackles, No rhonchi, No wheezing Cardiac/Chest: regular rate, rhythm, No edema, No JVD, No diastolic murmur, No systolic murmur Skin: normal color, warm/dry Neuro/Psych: alert, normal mood/affect, other (Upper extremity ataxia noted putting on shoes and socks) ICD10 Worksheet Patient Problems: Problems Problem Status Onset Anoxic brain injury Acute
[2018-09-15] MEDS: TAMSULOSIN HCL 0.4 MG CAP PO SCH (20:46)
[2018-09-15] MEDS: VALSARTAN 40 MG TAB PO SCH (20:46)
[2018-09-15] MEDS: MELATONIN 3 MG TAB PO PRN (20:56)
[2018-09-16] MEDS: MAGNESIUM OXIDE 400 MG TAB PO SCH ×2 (09:41→20:48)
[2018-09-16] MEDS: AMIODARONE HCL 200 MG TAB PO SCH (09:41)
[2018-09-16] MEDS: POLYETHYLENE GLYCOL 3350 17 GM PKT PO PRN (09:41)
[2018-09-16] MEDS: ENOXAPARIN 80 MG/0.8 ML SYR SC SCH ×2 (09:41→20:48)
[2018-09-16] MEDS: SPIRONOLACTONE 25 MG TAB PO SCH (09:42)
[2018-09-16] MEDS: SENNOSIDES/DOCUSATE SODIUM TAB PO SCH ×2 (09:42→20:48)
[2018-09-16] MEDS: METOPROLOL SUCCINATE XR 25 MG TAB PO SCH (09:43)
[2018-09-16] MEDS: VALSARTAN 40 MG TAB PO SCH ×2 (09:43→21:36)
--- NOTE | 2018-09-16 13:04 | HOSPPROG ---
Hospitalist Progress Note Assessment/Plan: Hypoxic/ischemic encephalopathy with ataxia, due to ventricular fibrillation cardiac arrest on 08/22/2018. * Initial functional independence measure is 52 on 09/11/2018. Contact guard assist for transfers. Contact guard assist ambulation with walker for 75 ft or with hand-held assist or minimal assist without walker. Upper body and lower body dressing require moderate assist. Grooming and hygiene require minimal assist. Toileting requires minimal assist. * Continue PT and OT to optimize mobility and activities of daily living. 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 * Global memory loss including short-term working and some long-term memory loss. 0LOG ranging from 24-27 over past several days as of 09/15/2018. Has some retention of events from previous stay. Attention seems to be intact. He is impulsive and has significantly reduced insight. * Continue WHOLESALE BUYER. Left upper extremity tenderness and swelling, 09/14/2018. * US showed DVT subclavian, axial, basilic and brachial veins. Girlfriend reported that he had lines in left arm in the hospital. * Treat with enoxaparin starting afternoon 09/14/2018. Will determine what oral anticoagulant to initiate depending on his insurance. * Continue immobilizer to left arm at night but strap around upper arm should not be tight. Discussed with nursing. * SWELLING IMPROVED Hypotension, unclear etiology, 09/12/2018. Not orthostatic. * CBC, BMP with slight worsening of anemia; Na 130. 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 * D/W Dr. Garcia, 09/12/2018 by phone, covering for his bundle wrapper Dr. Flores. Advised starting lisinopril 2.5 mg QD if BP tolerates; best to keep BP above 100 systolic. Not concerned re Na of 130; not too low in his circumstance. * BP improved since 09/13/2018. Initiate valsartan per Cardiology recommendations starting afternoon of 09/15/2018, at 40 mg twice daily. * HOLDING BP MEDS FOR SBP<90 Dilated cardiomyopathy of unclear etiology. * Continue amiodarone, metoprolol and spironolactone. * Systolic blood pressure is consistently above 110 as of 09/15/2018. Starting valsartan as above. Plan to start sacibitril/valsartan combination, per instructions of Cardiology, if blood pressure remains adequate. * NO SIGNS OF FLUID OVERLOAD OR HEART FAILURE Recent pacer/ICD placement. Placement 09/05/2018, lead replacement 09/06/2018. * Family is concerned about possible dislodgement of leads with recent near fall in which he caught himself with left arm. * Pacer pocket is intact with no signs or symptoms of dehiscence or infection. * Discussed with Cardiology PA David Lord, 09/11/2018. Continue restrictions of not to raise arm above 90 degrees, 10 lb weight-bearing restriction for 1 week and then 20 lb weight-bearing restriction, and advised to continue to use arm immobilizer at night due to impulsivity and memory loss, to ensure compliance. * Spoke to [employer] customer engagement representative, 09/11/2018, following advice of David Lord. [employer] rep came to rehabilitation unit 09/11/2018 and interrogated device. No malfunction. Low-grade fever, 09/12/2018. * UA normal. No sign of pocket infection. No cough, hypoxia or tachypnea. WBCs normal though monocytosis. Will get blood cultures if temperature gets above 100. History of urinary retention. Continue tamsulosin. History of hyperthyroidism. TSH was mildly suppressed in the hospital, with normal free T4. * Normal TSH on 09/11/2018. Monitor for signs or symptoms of hyperthyroidism. Should have repeat TSH in 4-6 weeks. DVT prophylaxis. ON LOVENOX Subjective: feels well. no dyspnea, orthopnea, dizziness Objective: Vital Signs Temp Pulse Resp BP Pulse Ox 36.9 C 72 16 94/56 L 93 09/16/18 07:57 09/16/18 07:57 09/16/18 07:57 09/16/18 08:00 09/16/18 07:57 Laboratory Results 09/12/18 17:56 09/12/18 17:56 09/15/18 09/16/18 09/17/18 05:59 05:59 05:59 Intake Total 1550 1810 Balance 1550 1810 - Physical Exam Constitutional: no apparent distress, appears nourished, not in pain Eyes: anicteric sclera, EOMI Ears, Nose, Mouth, Throat: moist mucous membranes Cardiovascular: regular rate and rhythym, no murmur, rub, or gallop, No edema Respiratory: no respiratory distress, no rales or rhonchi, clear to auscultation Skin: warm Neurologic: AAOx3 Psychiatric: interacting appropriately, not anxious, not encephalopathic, thought process linear ICD10 Worksheet Patient Problems: Problems Problem Status Onset Anoxic brain injury Acute
[2018-09-16] MEDS: TAMSULOSIN HCL 0.4 MG CAP PO SCH (20:48)
[2018-09-16] MEDS: MELATONIN 3 MG TAB PO PRN (21:36)
[2018-09-17] MEDS: SENNOSIDES/DOCUSATE SODIUM TAB PO SCH ×2 (09:00→20:50)
[2018-09-17] MEDS: SPIRONOLACTONE 25 MG TAB PO SCH (09:00)
[2018-09-17] MEDS: VALSARTAN 40 MG TAB PO SCH ×2 (09:00→20:44)
[2018-09-17] MEDS: METOPROLOL SUCCINATE XR 25 MG TAB PO SCH (09:01)
[2018-09-17] MEDS: AMIODARONE HCL 200 MG TAB PO SCH (09:02)
[2018-09-17] MEDS: ENOXAPARIN 80 MG/0.8 ML SYR SC SCH ×2 (09:02→20:44)
[2018-09-17] MEDS: MAGNESIUM OXIDE 400 MG TAB PO SCH ×2 (09:02→20:44)
--- NOTE | 2018-09-17 10:28 | HOSPPROG ---
Hospitalist Progress Note Assessment/Plan: Hypoxic/ischemic encephalopathy with ataxia, due to ventricular fibrillation cardiac arrest on 08/22/2018. * Initial functional independence measure is 52 on 09/11/2018. Contact guard assist for transfers. Contact guard assist ambulation with walker for 75 ft or with hand-held assist or minimal assist without walker. Upper body and lower body dressing require moderate assist. Grooming and hygiene require minimal assist. Toileting requires minimal assist. * Continue PT and OT to optimize mobility and activities of daily living. 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 * Global memory loss including short-term working and some long-term memory loss. 0LOG ranging from 24-27 over past several days as of 09/15/2018. Has some retention of events from previous stay. Attention seems to be intact. He is impulsive and has significantly reduced insight. * Continue ANATOMIC PATHOLOGY ASSISTANT. Left upper extremity tenderness and swelling, 09/14/2018. * US showed DVT subclavian, axial, basilic and brachial veins. Girlfriend reported that he had lines in left arm in the hospital. * Treat with enoxaparin starting afternoon 09/14/2018. Will determine what oral anticoagulant to initiate depending on his insurance. * Continue immobilizer to left arm at night but strap around upper arm should not be tight. Discussed with nursing. * SWELLING IMPROVED Hypotension, unclear etiology, 09/12/2018. Not orthostatic. * CBC, BMP with slight worsening of anemia; Na 130. 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 * D/W Dr. Garcia, 09/12/2018 by phone, covering for his car mover Dr. Flores. Advised starting lisinopril 2.5 mg QD if BP tolerates; best to keep BP above 100 systolic. Not concerned re Na of 130; not too low in his circumstance. * BP improved since 09/13/2018. Initiate valsartan per Cardiology recommendations starting afternoon of 09/15/2018, at 40 mg twice daily. * HOLDING BP MEDS FOR SBP<90 - BETTER bp 09/16 Dilated cardiomyopathy of unclear etiology. * Continue amiodarone, metoprolol and spironolactone. * Systolic blood pressure is consistently above 110 as of 09/15/2018. Starting valsartan as above. Plan to start sacibitril/valsartan combination, per instructions of Cardiology, if blood pressure remains adequate. * NO SIGNS OF FLUID OVERLOAD OR HEART FAILURE Recent pacer/ICD placement. Placement 09/05/2018, lead replacement 09/06/2018. * Family is concerned about possible dislodgement of leads with recent near fall in which he caught himself with left arm. * Pacer pocket is intact with no signs or symptoms of dehiscence or infection. * Discussed with Cardiology PA David Lord, 09/11/2018. Continue restrictions of not to raise arm above 90 degrees, 10 lb weight-bearing restriction for 1 week and then 20 lb weight-bearing restriction, and advised to continue to use arm immobilizer at night due to impulsivity and memory loss, to ensure compliance. * Spoke to [employer] retail representative, 09/11/2018, following advice of David Lord. [employer] rep came to rehabilitation unit 09/11/2018 and interrogated device. No malfunction. Low-grade fever, 09/12/2018. * UA normal. No sign of pocket infection. No cough, hypoxia or tachypnea. WBCs normal though monocytosis. Will get blood cultures if temperature gets above 100. History of urinary retention. Continue tamsulosin. History of hyperthyroidism. TSH was mildly suppressed in the hospital, with normal free T4. * Normal TSH on 09/11/2018. Monitor for signs or symptoms of hyperthyroidism. Should have repeat TSH in 4-6 weeks. DVT prophylaxis. ON LOVENOX Subjective: no new complaints. pretty impulsive still Objective: Vital Signs Temp Pulse Resp BP Pulse Ox 36.3 C 76 15 108/60 94 09/17/18 06:01 09/17/18 09:01 09/17/18 06:01 09/17/18 09:01 09/17/18 06:01 Laboratory Results 09/12/18 17:56 09/12/18 17:56 09/16/18 09/17/18 09/18/18 05:59 05:59 05:59 Intake Total 1809 1889 Balance 1809 1889 - Physical Exam Constitutional: no apparent distress, appears nourished, not in pain Eyes: anicteric sclera Ears, Nose, Mouth, Throat: moist mucous membranes, hearing normal, ears appear normal, no oral mucosal ulcers Cardiovascular: regular rate and rhythym, no murmur, rub, or gallop, No JVD, No edema Respiratory: no respiratory distress, no rales or rhonchi, clear to auscultation Skin: warm Neurologic: AAOx3 ICD10 Worksheet Patient Problems: Problems Problem Status Onset Anoxic brain injury Acute
[2018-09-17] MEDS: TAMSULOSIN HCL 0.4 MG CAP PO SCH (20:44)
[2018-09-17] MEDS: MELATONIN 3 MG TAB PO PRN (20:48)
[2018-09-18] MEDS: MAGNESIUM OXIDE 400 MG TAB PO SCH ×2 (08:25→21:48)
[2018-09-18] MEDS: METOPROLOL SUCCINATE XR 25 MG TAB PO SCH (08:26)
[2018-09-18] MEDS: VALSARTAN 40 MG TAB PO SCH ×2 (08:26→21:49)
[2018-09-18] MEDS: SENNOSIDES/DOCUSATE SODIUM TAB PO SCH ×2 (08:26→21:50)
[2018-09-18] MEDS: SPIRONOLACTONE 25 MG TAB PO SCH (08:27)
[2018-09-18] MEDS: AMIODARONE HCL 200 MG TAB PO SCH (08:27)
[2018-09-18] MEDS: ENOXAPARIN 80 MG/0.8 ML SYR SC SCH ×2 (08:29→21:48)
--- NOTE | 2018-09-18 13:23 | SOAPPROG ---
SOAP Progress Note Assessment/Plan: Assessment: Hypoxic/ischemic encephalopathy with ataxia, due to ventricular fibrillation cardiac arrest on 08/22/2018. * Initial functional independence measure is 52 on 09/11/2018, improved to 84 as of 09/18/2018. Independent with toileting. Contact guard assist for transfers. Supervision for bed mobility. Ambulated 1500 ft outside with no device with standby assist to contact guard assist. Climbed and descended 12 stairs with 2 was, contact guard assist. In his room he needed cues to keep his walker close. ADLs were done with supervision. Continues to have ataxia. * Continue PT and OT to optimize mobility and activities of daily living. 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 * Global memory loss including short-term working and some long-term memory loss. 0LOG continues to be below normal. Has some retention of events from previous stay. Attention seems to be intact. He is impulsive and has significantly reduced insight. * Continue ACCOUNT SUPPORT REP. Left upper extremity tenderness and swelling, 09/14/2018. * US showed DVT subclavian, axial, basilic and brachial veins. Girlfriend reported that he had lines in left arm in the hospital. * Treat with enoxaparin starting afternoon 09/14/2018. Will determine what oral anticoagulant to initiate depending on his insurance. * Continue immobilizer to left arm at night but strap around upper arm should not be tight. Discussed with nursing. Hypotension, unclear etiology, 09/12/2018. Not orthostatic. * CBC, BMP with slight worsening of anemia; Na 130. 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 * D/W Dr. 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 Advised starting lisinopril 2.5 mg QD if BP tolerates; best to keep BP above 100 systolic. Not concerned re Na of 130; not too low in his circumstance. * BP improved since 09/13/2018. Initiate valsartan per Cardiology recommendations starting afternoon of 09/15/2018, at 40 mg twice daily. Dilated cardiomyopathy of unclear etiology. * Continue amiodarone, metoprolol and spironolactone. * Systolic blood pressure is consistently above 110 as of 09/15/2018. Started valsartan as above. * Does not have sufficient blood pressure to start sacibitril/valsartan combination, per instructions of Cardiology, if blood pressure remains adequat would need systolic consistently above 110. Recent pacer/ICD placement. Placement 09/05/2018, lead replacement 09/06/2018. * Family is concerned about possible dislodgement of leads with recent near fall in which he caught himself with left arm. * Pacer pocket is intact with no signs or symptoms of dehiscence or infection. * Discussed with Cardiology PA David Ortega, 09/11/2018. Continue restrictions of not to raise arm above 90 degrees, 10 lb weight-bearing restriction for 1 week and then 20 lb weight-bearing restriction, and advised to continue to use arm immobilizer at night due to impulsivity and memory loss, to ensure compliance. * Spoke to [employer] career representative, 09/11/2018, following advice of David Lord. [employer] rep came to rehabilitation unit 09/11/2018 and interrogated device. No malfunction. Low-grade fever, 09/12/2018. * UA normal. No sign of pocket infection. No cough, hypoxia or tachypnea. WBCs normal though monocytosis. Will get blood cultures if temperature gets above 100. History of urinary retention. Continue tamsulosin. History of hyperthyroidism. TSH was mildly suppressed in the hospital, with normal free T4. * Normal TSH on 09/11/2018. Monitor for signs or symptoms of hyperthyroidism. Should have repeat TSH in 4-6 weeks. DVT prophylaxis. He is low risk for DVT, and high risk for fall which could result in a bleed. DISPOSITION: Attended staffing, 15 min, 09/18/2018. Discussed with case management, dietitian, nursing, PT, OT, ACCOUNT SUPPORT REP. He has multiple stairs to climb in the home. Girlfriend is available 24 hr a day at present to assist. She has been encouraged to not accompany patient to therapy sessions and she tends to assist, which interferes with assessment and development of independence. Goal is functional independence for mobility and most ADLs for a safe discharge. Tentative discharge date set for 09/25/2018. Follow-up : [facility]; Dr. Purvis, cardiology scheduled for 2018. Will check CBC and BMP prior to Cardiology appointment. 09/18/18 13:47 Subjective: No complaints. Feels he sleeps well and feels refreshed in the morning. Not in pain. No cough or dyspnea, no fevers or chills. Objective: Vital Signs Temp Pulse Resp BP Pulse Ox 36.6 C 66 16 100/61 93 09/18/18 07:50 09/18/18 07:50 09/18/18 07:50 09/18/18 07:50 09/18/18 07:50 Laboratory Results 09/12/18 17:56 09/12/18 17:56 09/17/18 09/18/18 09/19/18 05:59 05:59 05:59 Intake Total 1890 2150 700 Balance 1890 2150 700 - Time Spent With Patient Time Spent With Patient: Greater than 35 min floor time today, including more than 50% of time in coordination of care during staffing meeting, and counseling patient and girlfriend. Physical Exam - Physical Exam General Appearance: WD/WN, alert, no apparent distress Respiratory: normal breath sounds, No crackles, No rhonchi, No wheezing Cardiac/Chest: regular rate, rhythm, No edema, No JVD, No diastolic murmur, No systolic murmur Skin: normal color, warm/dry Extremities: other (Venous distention in the left forearm is improved) Neuro/Psych: alert, normal mood/affect, No motor weakness ICD10 Worksheet Patient Problems: Problems Problem Status Onset Anoxic brain injury Acute
[2018-09-18] MEDS: TAMSULOSIN HCL 0.4 MG CAP PO SCH (21:50)
[2018-09-18] MEDS: MELATONIN 3 MG TAB PO PRN (22:02)
[2018-09-19 05:13] LABS: PLATELET COUNT 234 10^3/uL (150-400)
[2018-09-19] MEDS: SENNOSIDES/DOCUSATE SODIUM TAB PO SCH ×2 (08:42→21:33)
[2018-09-19] MEDS: ENOXAPARIN 80 MG/0.8 ML SYR SC SCH (08:42)
[2018-09-19] MEDS: MAGNESIUM OXIDE 400 MG TAB PO SCH ×2 (08:42→21:33)
[2018-09-19] MEDS: METOPROLOL SUCCINATE XR 25 MG TAB PO SCH (08:43)
[2018-09-19] MEDS: AMIODARONE HCL 200 MG TAB PO SCH (08:43)
[2018-09-19] MEDS: SPIRONOLACTONE 25 MG TAB PO SCH (08:44)
[2018-09-19] MEDS: VALSARTAN 40 MG TAB PO SCH ×2 (08:44→21:33)
--- NOTE | 2018-09-19 12:18 | SOAPPROG ---
SOAP Progress Note Assessment/Plan: Assessment: Hypoxic/ischemic encephalopathy with ataxia, due to ventricular fibrillation cardiac arrest on 08/22/2018. * Initial functional independence measure is 52 on 09/11/2018, improved to 84 as of 09/18/2018. Independent with toileting. Contact guard assist for transfers. Supervision for bed mobility. Ambulated 1500 ft outside with no device with standby assist to contact guard assist. Climbed and descended 12 stairs with 2 rails, contact guard assist. In his room he needed cues to keep his walker close. ADLs were done with supervision. Continues to have ataxia. * Continue PT and OT to optimize mobility and activities of daily living. 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 * Global memory loss including short-term working and some long-term memory loss. . Has some retention of events from previous stay. Attention seems to be intact. He is impulsive and has significantly reduced insight. * Past OLOG today, scoring 27/30, with improved insight. 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 Left upper extremity tenderness and swelling, 09/14/2018. * US showed DVT subclavian, axial, basilic and brachial veins. Girlfriend reported that he had lines in left arm in the hospital. * Treat with enoxaparin starting afternoon 09/14/2018. Will determine what oral anticoagulant to initiate depending on his insurance. * Continue immobilizer to left arm at night but strap around upper arm should not be tight. Discussed with nursing. Hypotension, unclear etiology, 09/12/2018. Not orthostatic. * CBC, BMP with slight worsening of anemia; Na 130. 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 * D/W Dr. 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 Flores. Advised starting lisinopril 2.5 mg QD if BP tolerates; best to keep BP above 100 systolic. Not concerned re Na of 130; not too low in his circumstance. * BP improved since 09/13/2018. Initiate valsartan per Cardiology recommendations starting afternoon of 09/15/2018, at 40 mg twice daily. * Hyponatremia resolved on labs 09/19/2018. Dilated cardiomyopathy of unclear etiology. * Continue amiodarone, metoprolol and spironolactone. * Systolic blood pressure is consistently above 110 as of 09/15/2018. Started valsartan as above. * Does not have sufficient blood pressure to start sacibitril/valsartan combination, per instructions of Cardiology, if blood pressure remains adequat would need systolic consistently above 110. Recent pacer/ICD placement. Placement 09/05/2018, lead replacement 09/06/2018. * Family is concerned about possible dislodgement of leads with recent near fall in which he caught himself with left arm. * Pacer pocket is intact with no signs or symptoms of dehiscence or infection. * Discussed with Cardiology PA David Ortega, 09/11/2018. Continue restrictions of not to raise arm above 90 degrees, 10 lb weight-bearing restriction for 1 week and then 20 lb weight-bearing restriction, and advised to continue to use arm immobilizer at night due to impulsivity and memory loss, to ensure compliance. * Spoke to [employer] sales representative [employer], 09/11/2018, following advice of David Lord. [employer] rep came to rehabilitation unit 09/11/2018 and interrogated device. No malfunction. Low-grade fever, 09/12/2018. * UA normal. No sign of pocket infection. No cough, hypoxia or tachypnea. WBCs normal though monocytosis. Will get blood cultures if temperature gets above 100. History of urinary retention. Continue tamsulosin. History of hyperthyroidism. TSH was mildly suppressed in the hospital, with normal free T4. * Normal TSH on 09/11/2018. Monitor for signs or symptoms of hyperthyroidism. Should have repeat TSH in 4-6 weeks. DVT prophylaxis. He is low risk for DVT, and high risk for fall which could result in a bleed. DISPOSITION: Attended staffing, 15 min, 09/18/2018. Discussed with case management, dietitian, nursing, PT, OT, MOVIE ACTOR. He has multiple stairs to climb in the home. Girlfriend is available 24 hr a day at present to assist. She has been encouraged to not accompany patient to therapy sessions and she tends to assist, which interferes with assessment and development of independence. Goal is functional independence for mobility and most ADLs for a safe discharge. Tentative discharge date set for 09/25/2018. Disposition currently unclear as he likely requires more care than girlfriend can provide. He would benefit from cardiac rehabilitation as well as a neurologic rehabilitation program. Follow-up : [facility]; Dr. Purvis, cardiology on 09/20/2018. 09/19/18 12:13 Subjective: No complaints. Slept well. No cough or dyspnea, no fever chills, not in pain. Objective: Vital Signs Temp Pulse Resp BP Pulse Ox 36.8 C 69 16 95/60 L 92 09/19/18 08:00 09/19/18 08:00 09/19/18 08:00 09/19/18 08:44 09/19/18 08:00 Laboratory Results 09/19/18 04:56 09/19/18 04:56 09/18/18 09/19/18 09/20/18 05:59 05:59 05:59 Intake Total 2150 2190 480 Balance 2150 2190 480 Physical Exam - Physical Exam General Appearance: WD/WN, alert, no apparent distress Respiratory: normal breath sounds, No crackles, No rhonchi, No wheezing Cardiac/Chest: regular rate, rhythm, No edema, No JVD, No diastolic murmur, No systolic murmur Skin: normal color, warm/dry Extremities: other (Left upper extremity without tenderness) Neuro/Psych: alert, normal mood/affect, No motor weakness ICD10 Worksheet Patient Problems: Problems Problem Status Onset Anoxic brain injury Acute
[2018-09-19] MEDS: TAMSULOSIN HCL 0.4 MG CAP PO SCH (21:33)
[2018-09-19] MEDS: MELATONIN 3 MG TAB PO PRN (21:33)
[2018-09-19] MEDS: APIXABAN 5 MG TAB PO SCH (21:33)
[2018-09-20] MEDS: MAGNESIUM OXIDE 400 MG TAB PO SCH ×2 (08:59→20:58)
[2018-09-20] MEDS: APIXABAN 5 MG TAB PO SCH ×2 (08:59→20:57)
[2018-09-20] MEDS: AMIODARONE HCL 200 MG TAB PO SCH (08:59)
[2018-09-20] MEDS: SENNOSIDES/DOCUSATE SODIUM TAB PO SCH ×2 (08:59→20:57)
[2018-09-20] MEDS: METOPROLOL SUCCINATE XR 25 MG TAB PO SCH (09:00)
[2018-09-20] MEDS: SPIRONOLACTONE 25 MG TAB PO SCH (09:01)
[2018-09-20] MEDS: VALSARTAN 40 MG TAB PO SCH (09:01)
[2018-09-20] MEDS ORDERED: VALSARTAN 40 MG TAB PO SCH (09:50)
--- NOTE | 2018-09-20 11:14 | SOAPPROG ---
SOAP Progress Note Assessment/Plan: Assessment: Hypoxic/ischemic encephalopathy with ataxia, due to ventricular fibrillation cardiac arrest on 08/22/2018. * Initial functional independence measure is 52 on 09/11/2018, improved to 84 as of 09/18/2018. Independent with toileting. Contact guard assist for transfers. Supervision for bed mobility. Ambulated 1500 ft outside with no device with standby assist to contact guard assist. Climbed and descended 12 stairs with 2 rails, contact guard assist. In his room he needed cues to keep his walker close. ADLs were done with supervision. Continues to have ataxia. * Continue PT and OT to optimize mobility and activities of daily living. 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 * Global memory loss including short-term working and some long-term memory loss. . Has some retention of events from previous stay. Attention seems to be intact. He is impulsive and has significantly reduced insight. * Past OLOG 09/19/2018 and 09/20/2018, with improved insight. 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 Left upper extremity tenderness and swelling, 09/14/2018. * US showed DVT subclavian, axial, basilic and brachial veins. Girlfriend reported that he had lines in left arm in the hospital. * Treat with enoxaparin starting afternoon 09/14/2018. Will determine what oral anticoagulant to initiate depending on his insurance. * Continue immobilizer to left arm at night but strap around upper arm should not be tight. Discussed with nursing. Hypotension, unclear etiology, 09/12/2018. Not orthostatic. * CBC, BMP with slight worsening of anemia; Na 130. 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 * D/W Dr. 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 Flores. Advised starting lisinopril 2.5 mg QD if BP tolerates; best to keep BP above 100 systolic. Not concerned re Na of 130; not too low in his circumstance. * BP improved since 09/13/2018. Initiate valsartan per Cardiology recommendations starting afternoon of 09/15/2018, at 40 mg twice daily. * Hyponatremia resolved on labs 09/19/2018. Dilated cardiomyopathy of unclear etiology. * Continue amiodarone, metoprolol and spironolactone. * Systolic blood pressure is consistently above 110 as of 09/15/2018. Started valsartan as above. Reduced valsartan from 40 mg twice daily to 20 mg twice daily due to low blood pressures. * Does not have sufficient blood pressure to start sacibitril/valsartan combination, per instructions of Cardiology, if blood pressure remains adequat would need systolic consistently above 110. Recent pacer/ICD placement. Placement 09/05/2018, lead replacement 09/06/2018. * Family is concerned about possible dislodgement of leads with recent near fall in which he caught himself with left arm. * Pacer pocket is intact with no signs or symptoms of dehiscence or infection. * Discussed with Cardiology PA David Ortega, 09/11/2018. Continue restrictions of not to raise arm above 90 degrees, 10 lb weight-bearing restriction for 1 week and then 20 lb weight-bearing restriction, and advised to continue to use arm immobilizer at night due to impulsivity and memory loss, to ensure compliance. * Spoke to [employer] hr representative, 09/11/2018, following advice of David Lord. [employer] rep came to rehabilitation unit 09/11/2018 and interrogated device. No malfunction. Low-grade fever, 09/12/2018. * UA normal. No sign of pocket infection. No cough, hypoxia or tachypnea. WBCs normal though monocytosis. Will get blood cultures if temperature gets above 100. History of urinary retention. Continue tamsulosin. History of hyperthyroidism. TSH was mildly suppressed in the hospital, with normal free T4. * Normal TSH on 09/11/2018. Monitor for signs or symptoms of hyperthyroidism. Should have repeat TSH in 4-6 weeks. DVT prophylaxis. He is low risk for DVT, and high risk for fall which could result in a bleed. DISPOSITION: Attended staffing, 15 min, 09/18/2018. Discussed with case management, dietitian, nursing, PT, OT, ROVING MACHINE OPERATOR. He has multiple stairs to climb in the home. Girlfriend is available 24 hr a day at present to assist. She has been encouraged to not accompany patient to therapy sessions and she tends to assist, which interferes with assessment and development of independence. Goal is functional independence for mobility and most ADLs for a safe discharge. Tentative discharge date set for 09/25/2018. Disposition currently unclear as he likely requires more care than girlfriend can provide. He would benefit from cardiac rehabilitation as well as a neurologic rehabilitation program. Follow-up : [facility]; Dr. Purvis, cardiology on 09/20/2018. 09/20/18 11:15 Subjective: No complaints. Sleeping well. No cough or dyspnea. No fevers or chills. Objective: Vital Signs Temp Pulse Resp BP Pulse Ox 36.6 C 64 18 88/62 L 94 09/20/18 07:46 09/20/18 09:00 09/20/18 07:46 09/20/18 09:01 09/20/18 07:46 Laboratory Results 09/19/18 04:56 09/19/18 04:56 09/19/18 09/20/18 09/21/18 05:59 05:59 05:59 Intake Total 2190 1930 240 Balance 2190 1930 240 Physical Exam - Physical Exam General Appearance: WD/WN, alert, no apparent distress Respiratory: normal breath sounds, No crackles, No rhonchi, No wheezing Cardiac/Chest: regular rate, rhythm, No edema, No diastolic murmur, No systolic murmur Skin: normal color, warm/dry Neuro/Psych: no motor/sensory deficits, alert, normal mood/affect, other (No recall of performance on 0L0G this morning despite prompting by speech therapist.) ICD10 Worksheet Patient Problems: Problems Problem Status Onset Anoxic brain injury Acute
[2018-09-20] MEDS: TAMSULOSIN HCL 0.4 MG CAP PO SCH (20:58)
[2018-09-20] MEDS: SACUBITRIL/VALSARTAN 24/26MG 1 EA TAB PO SCH (20:58)
[2018-09-20] MEDS: MELATONIN 3 MG TAB PO PRN (20:58)
[2018-09-21] MEDS: APIXABAN 5 MG TAB PO SCH ×2 (09:20→20:47)
[2018-09-21] MEDS: AMIODARONE HCL 200 MG TAB PO SCH (09:20)
[2018-09-21] MEDS: MAGNESIUM OXIDE 400 MG TAB PO SCH ×2 (09:21→20:46)
[2018-09-21] MEDS: METOPROLOL SUCCINATE XR 25 MG TAB PO SCH (09:22)
[2018-09-21] MEDS: SPIRONOLACTONE 25 MG TAB PO SCH (09:23)
[2018-09-21] MEDS: SACUBITRIL/VALSARTAN 24/26MG 1 EA TAB PO SCH ×2 (09:23→20:46)
[2018-09-21] MEDS: SENNOSIDES/DOCUSATE SODIUM TAB PO SCH ×2 (09:23→20:46)
--- NOTE | 2018-09-21 11:14 | SOAPPROG ---
SOAP Progress Note Assessment/Plan: Assessment: Hypoxic/ischemic encephalopathy with ataxia, due to ventricular fibrillation cardiac arrest on 08/22/2018. * Initial functional independence measure is 52 on 09/11/2018, improved to 84 as of 09/18/2018. Independent with toileting. Contact guard assist for transfers. Supervision for bed mobility. Ambulated 1500 ft outside with no device with standby assist to contact guard assist. Climbed and descended 12 stairs with 2 rails, contact guard assist. In his room he needed cues to keep his walker close. ADLs were done with supervision. Continues to have ataxia. * Continue PT and OT to optimize mobility and activities of daily living. 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 * Global memory loss including short-term working and some long-term memory loss. Has some retention of events from previous day. Attention seems to be intact. He is impulsive and has significantly reduced insight. * Passed OLOG 09/19/2018 and 09/20/2018, with improved insight. 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 Left upper extremity tenderness and swelling, 09/14/2018. * US showed DVT subclavian, axial, basilic and brachial veins. Girlfriend reported that he had lines in left arm in the hospital. * Treat with enoxaparin starting afternoon 09/14/2018. Transitioned to apixaban. Should continue for 3 months. * Continue immobilizer to left arm at night but strap around upper arm should not be tight. Discussed with nursing. Hypotension, unclear etiology, 09/12/2018. Not orthostatic. * CBC, BMP with slight worsening of anemia; Na 130. 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 * D/W Dr. Garcia, 09/12/2018 by phone, covering for his [employer] Dr. Flores. Advised starting lisinopril 2.5 mg QD if BP tolerates; best to keep BP above 100 systolic. Not concerned re Na of 130; not too low in his circumstance. * BP improved since 09/13/2018. Initiated valsartan per Cardiology recommendations starting afternoon of 09/15/2018, at 40 mg twice daily. * Hyponatremia resolved on labs 09/19/2018. Dilated cardiomyopathy of unclear etiology. * Continue amiodarone, metoprolol and spironolactone. * Systolic blood pressure is consistently above 110 as of 09/15/2018. Started valsartan as above. Reduced valsartan from 40 mg twice daily to 20 mg twice daily due to low blood pressures. * Discontinued valsartan evening of 09/20/2018 and initiated sacibitril/ valsartan combination. Recent pacer/ICD placement. Placement 09/05/2018, lead replacement 09/06/2018. * Family is concerned about possible dislodgement of leads with recent near fall in which he caught himself with left arm. * Pacer pocket is intact with no signs or symptoms of dehiscence or infection. * Discussed with Cardiology PA David Ortega, 09/11/2018. Continue restrictions of not to raise arm above 90 degrees, 10 lb weight-bearing restriction for 1 week and then 20 lb weight-bearing restriction, and advised to continue to use arm immobilizer at night due to impulsivity and memory loss, to ensure compliance. * Spoke to [employer] airport representative, 09/11/2018, following advice of David Lord. [employer] rep came to rehabilitation unit 09/11/2018 and interrogated device. No malfunction. Low-grade fever, 09/12/2018. * UA normal. No sign of pocket infection. No cough, hypoxia or tachypnea. WBCs normal though monocytosis. Will get blood cultures if temperature gets above 100. History of urinary retention. Continue tamsulosin. History of hyperthyroidism. TSH was mildly suppressed in the hospital, with normal free T4. * Normal TSH on 09/11/2018. Monitor for signs or symptoms of hyperthyroidism. Should have repeat TSH in 4-6 weeks. DVT prophylaxis. He is low risk for DVT, and high risk for fall which could result in a bleed. DISPOSITION: Attended staffing, 15 min, 09/18/2018. Discussed with case management, dietitian, nursing, PT, OT, TIRE SORTER. He has multiple stairs to climb in the home. Girlfriend is available 24 hr a day at present to assist. She has been encouraged to not accompany patient to therapy sessions and she tends to assist, which interferes with assessment and development of independence. Goal is functional independence for mobility and most ADLs for a safe discharge. As of 09/21/2017 it seems unlikely that girlfriend will be able to care for him at home due to his cognitive deficits. Will be evaluated today, , for neuro rehab [facility]. Follow-up : [facility]; Dr. Purvis. 09/21/18 11:09 Subjective: Per staff reports, he was agitated this morning. No lightheadedness or dizziness with sitting up or standing up. No cough or dyspnea. Does not get short of breath with ambulation. No fevers or chills. Objective: Vital Signs Temp Pulse Resp BP Pulse Ox 36.6 C 77 16 115/67 95 09/21/18 08:00 09/21/18 08:00 09/21/18 08:00 09/21/18 08:00 09/21/18 08:00 Laboratory Results 09/19/18 04:56 09/19/18 04:56 09/20/18 09/21/18 09/22/18 05:59 05:59 05:59 Intake Total 1930 2320 480 Balance 1930 2320 480 Physical Exam - Physical Exam General Appearance: WD/WN, alert, no apparent distress Respiratory: normal breath sounds, No crackles, No rhonchi, No wheezing Cardiac/Chest: regular rate, rhythm, JVD, No edema, No diastolic murmur, No systolic murmur Skin: normal color, warm/dry Neuro/Psych: alert, normal mood/affect ICD10 Worksheet Patient Problems: Problems Problem Status Onset Anoxic brain injury Acute
[2018-09-21] MEDS: TAMSULOSIN HCL 0.4 MG CAP PO SCH (20:47)
[2018-09-21] MEDS: MELATONIN 3 MG TAB PO PRN (20:47)
[2018-09-22] MEDS: APIXABAN 5 MG TAB PO SCH ×2 (08:38→21:02)
[2018-09-22] MEDS: MAGNESIUM OXIDE 400 MG TAB PO SCH ×2 (08:38→21:02)
[2018-09-22] MEDS: AMIODARONE HCL 200 MG TAB PO SCH (08:38)
[2018-09-22] MEDS: METOPROLOL SUCCINATE XR 25 MG TAB PO SCH (08:39)
[2018-09-22] MEDS: SPIRONOLACTONE 25 MG TAB PO SCH (08:39)
[2018-09-22] MEDS: SENNOSIDES/DOCUSATE SODIUM TAB PO SCH ×3 (08:40→21:07)
[2018-09-22] MEDS: SACUBITRIL/VALSARTAN 24/26MG 1 EA TAB PO SCH ×2 (08:40→21:03)
--- NOTE | 2018-09-22 12:17 | SOAPPROG ---
SOAP Progress Note Assessment/Plan: Assessment: Hypoxic/ischemic encephalopathy with ataxia, due to ventricular fibrillation cardiac arrest on 08/22/2018. * Initial functional independence measure is 52 on 09/11/2018, improved to 84 as of 09/18/2018. Independent with toileting. Contact guard assist for transfers. Supervision for bed mobility. Ambulated 1500 ft outside with no device with standby assist to contact guard assist. Climbed and descended 12 stairs with 2 rails, contact guard assist. In his room he needed cues to keep his walker close. ADLs were done with supervision. Continues to have ataxia. * Continue PT and OT to optimize mobility and activities of daily living. 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 * Global memory loss including short-term working and some long-term memory loss. Has some retention of events from previous day. Attention seems to be intact. He is impulsive and has significantly reduced insight. * Passed OLOG 09/19/2018 and 09/20/2018, with improved insight. * Continue IMAGING ASSISTANT. Left upper extremity tenderness and swelling, 09/14/2018. * US showed DVT subclavian, axial, basilic and brachial veins. Girlfriend reported that he had lines in left arm in the hospital. * Treat with enoxaparin starting afternoon 09/14/2018. Transitioned to apixaban. Should continue for 3 months. * Continue immobilizer to left arm at night but strap around upper arm should not be tight. Discussed with nursing. Hypotension, unclear etiology, 09/12/2018. Not orthostatic. * CBC, BMP with slight worsening of anemia; Na 130. 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 * D/W Dr. Garcia, 09/12/2018 by phone, covering for his banjo repairer Dr. Flores. Advised starting lisinopril 2.5 mg QD if BP tolerates; best to keep BP above 100 systolic. Not concerned re Na of 130; not too low in his circumstance. * BP improved since 09/13/2018. Initiated valsartan per Cardiology recommendations starting afternoon of 09/15/2018, at 40 mg twice daily. * Hyponatremia resolved on labs 09/19/2018. Dilated cardiomyopathy of unclear etiology. * Continue amiodarone, metoprolol and spironolactone. * Systolic blood pressure is consistently above 110 as of 09/15/2018. Started valsartan as above. Reduced valsartan from 40 mg twice daily to 20 mg twice daily due to low blood pressures. * Discontinued valsartan evening of 09/20/2018 and initiated sacibitril/ valsartan combination. Tolerating well. Recent pacer/ICD placement. Placement 09/05/2018, lead replacement 09/06/2018. * Family is concerned about possible dislodgement of leads with recent near fall in which he caught himself with left arm. * Pacer pocket is intact with no signs or symptoms of dehiscence or infection. * Discussed with Cardiology PA David Ortega, 09/11/2018. Continue restrictions of not to raise arm above 90 degrees, 10 lb weight-bearing restriction; and advised to continue to use arm immobilizer at night due to impulsivity and memory loss, to ensure compliance. * Spoke to [employer] bank representative, 09/11/2018, following advice of David Lord. [employer] rep came to rehabilitation unit 09/11/2018 and interrogated device. No malfunction. Low-grade fever, 09/12/2018. * UA normal. No sign of pocket infection. No cough, hypoxia or tachypnea. WBCs normal though monocytosis. Will get blood cultures if temperature gets above 100. History of urinary retention. Continue tamsulosin. History of hyperthyroidism. TSH was mildly suppressed in the hospital, with normal free T4. * Normal TSH on 09/11/2018. Monitor for signs or symptoms of hyperthyroidism. Should have repeat TSH in 4-6 weeks. DVT prophylaxis. He is low risk for DVT, and high risk for fall which could result in a bleed. DISPOSITION: Attended staffing, 15 min, 09/18/2018. Discussed with case management, dietitian, nursing, PT, OT, IMAGING ASSISTANT. He has multiple stairs to climb in the home. Girlfriend is available 24 hr a day at present to assist. She has been encouraged to not accompany patient to therapy sessions and she tends to assist, which interferes with assessment and development of independence. Goal is functional independence for mobility and most ADLs for a safe discharge. As of 09/21/2017 it seems unlikely that girlfriend will be able to care for him at home due to his cognitive deficits. Possible discharge to neuro rehab [facility] in [facility], most likely on 09/25/2018. Follow-up : [facility]; Dr. Purvis. 09/22/18 12:15 Subjective: No complaints. Reports he slept well, though girlfriend reports that he did not sleep well. Denies pain no girlfriend reports he has had some soreness at the pacer site. No cough or dyspnea, no fevers or chills. Objective: Vital Signs Temp Pulse Resp BP Pulse Ox 36.8 C 78 16 109/66 97 09/22/18 07:28 09/22/18 08:34 09/22/18 07:28 09/22/18 08:34 09/22/18 08:34 Laboratory Results 09/19/18 04:56 09/19/18 04:56 09/21/18 09/22/18 09/23/18 05:59 05:59 05:59 Intake Total 2320 2105 400 Balance 2320 2105 400 Physical Exam - Physical Exam General Appearance: WD/WN, alert, no apparent distress Respiratory: normal breath sounds, No crackles, No rhonchi, No wheezing Cardiac/Chest: regular rate, rhythm, No edema, No JVD, No diastolic murmur, No systolic murmur Skin: normal color, warm/dry Neuro/Psych: alert, normal mood/affect, No motor weakness ICD10 Worksheet Patient Problems: Problems Problem Status Onset Anoxic brain injury Acute
--- NOTE | 2018-09-22 20:29 | GDS ---
[f rep st] DISCHARGE SUMMARY ADMITTING DIAGNOSIS: Debility and cognitive impairment due to hypoxic ischemic encephalopathy. 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 OTHER DISCHARGE DIAGNOSES: 1. Nonischemic dilated cardiomyopathy. 2. Status post pacer/ICD placement. COMPLICATIONS: None. CONSULTATION: He had a followup with the Cardiology Clinic PROCEDURE: He had interrogation of his ICD/pacer by the [employer] rep, and it was found to be working. HISTORY AND HOSPITAL COURSE: This patient was admitted from [facility]. He had presented there in cardiac arrest, receiving CPR. He had a VFib arrest. He had return of spontaneous circulation either in the ambulance or in the emergency department. He underwent hypothermia after cardiac arrest protocol, but suffered hypoxic-ischemic encephalopathy. He eventually was medically stabilized and ready for rehabilitation. He had good progress during his rehabilitation stay. Initially, his functional independence measure was 52, which is consistent with a low level of fci function, needing assistance with all aspects of ADLs and mobility. His functional independence measure improved to 84 as of 09/18/2018, which is consistent with assisted living level of function. He was independent with toileting. He needed contact guard assist for transfers. He ambulated 1500 feet outside with no device, with standby assist to contact guard assist. He climbed and descended 12 stairs with 2 rails with contact guard assist. ADLs were at supervision level. His discharge disposition choices were limited by his significant cognitive impairment. He had global memory loss, including short-term, working, and some long-term memory. He was able to retain some events from the previous day. He had impulsivity and significantly reduced insight. He eventually passed the orientation log on September 19 and September 20, showing some improvement in insight. He developed symptoms of pain and swelling in the left upper extremity. His girlfriend reported he had lines placed during his hospitalization. Ultrasound study was obtained, and he was found to have a DVT in the subclavian, axial, basilic, and brachial veins. He was initially treated with enoxaparin and then transitioned to apixaban. This should continue for approximately 3 months. There were low blood pressures. There was hyponatremia, with a sodium as low as 130. Valsartan was added. Hyponatremia resolved. He intermittently needed medications held for systolic blood pressure less than 100, but eventually, after his Cardiology followup on 09/20/2018, he was be begun on sacubitril/ valsartan combination. This medication, along with Toprol-XL and spironolactone , will help ventricular remodeling. He did not show any signs or symptoms of decompensated heart failure. There was a history of hyperthyroidism. In the hospital, his TSH was mildly suppressed, and he had a normal free T4. He had a normal TSH on 09/11/2018. He showed no signs or symptoms of hyperthyroidism. He should have a repeat TSH done in approximately 4 weeks. DISCHARGE PLAN: Disposition: He will be going to the [facility] in [place] for specific neurologic rehabilitation. CONDITION: Good. ACTIVITY: Ad lai, but he should have supervision with mobility, and he needs assistance with important cognitive-related skills. DIET: Cardiac, low salt. MEDICATIONS ON DISCHARGE: 1. Amiodarone 200 mg p.o. daily. 2. Acetaminophen 650 mg p.o. q.4 hours p.r.n. 3. Apixaban 5 mg p.o. twice daily. 4. Carboxymethylcellulose 1% eyedrops each eye three times daily p.r.n. 5. Magnesium oxide 40 mg p.o. twice daily. 6. Melatonin 3 mg p.o. at bedtime. 7. Metoprolol succinate XR 12.5 mg p.o. daily. 8. Polyethylene glycol 17 g p.o. daily p.r.n. 9. Sacubitril/valsartan 24/26 mg 1 p.o. twice daily. 10. Senna/docusate 1 to 2 p.o. twice daily. 11. Spironolactone 12.5 mg p.o. daily. 12. Tamsulosin 0.4 mg p.o. at bedtime. ISSUES TO BE ADDRESSED AT FOLLOWUP: 1. Cognitive function. He will continue to receive neurologic rehabilitation therapies. He can follow up with his new attending physician at [facility]. 2. Dilated cardiomyopathy, status post implantation of ICD/pacer. He will follow up with customer service receptionist, Dr. Sana Rankin. 3. Hyperthyroidism. Unclear whether this may have contributed to his dilated cardiomyopathy. TSH was normal. He should have repeat TSH in approximately 4 weeks. 4. Left upper extremity DVT. Continue rivaroxaban for approximately 3 months. He can follow up with his new attending at [facility], or with his primary care provider Dr. Alphonse Trent. Copy requested to: [facility] Dr Sana Rankin /[id number]/MODL MTDD
[2018-09-22] MEDS: TAMSULOSIN HCL 0.4 MG CAP PO SCH (21:02)
[2018-09-22] MEDS: MELATONIN 3 MG TAB PO PRN (21:02)
[2018-09-23] MEDS: MAGNESIUM OXIDE 400 MG TAB PO SCH ×2 (07:59→21:03)
[2018-09-23] MEDS: APIXABAN 5 MG TAB PO SCH ×2 (07:59→21:03)
--- NOTE | 2018-09-23 09:36 | SOAPPROG ---
SOAP Progress Note Assessment/Plan: Assessment/Plan: Hypoxic/ischemic encephalopathy with ataxia, due to ventricular fibrillation cardiac arrest on 08/22/2018. * Initial functional independence measure is 52 on 09/11/2018, improved to 84 as of 09/18/2018. Independent with toileting. Contact guard assist for transfers. Supervision for bed mobility. Ambulated 1500 ft outside with no device with standby assist to contact guard assist. Climbed and descended 12 stairs with 2 rails, contact guard assist. In his room he needed cues to keep his walker close. ADLs were done with supervision. Continues to have ataxia. * Continue PT and OT to optimize mobility and activities of daily living. 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 * Global memory loss including short-term working and some long-term memory loss. Has some retention of events from previous day. Attention seems to be intact. He is impulsive and has significantly reduced insight. * Passed OLOG 09/19/2018 and 09/20/2018, with improved insight. * Continue PROJECT PROGRAM MANAGER. Left upper extremity tenderness and swelling, 09/14/2018. * US showed DVT subclavian, axial, basilic and brachial veins. Girlfriend reported that he had lines in left arm in the hospital. * Treat with enoxaparin starting afternoon 09/14/2018. Transitioned to apixaban. Should continue for 3 months. * Continue immobilizer to left arm at night but strap around upper arm should not be tight. Discussed with nursing. Hypotension, unclear etiology, 09/12/2018- Continues to run lower although asymptomatic * slight worsening of anemia although repeat demonstrates stability * D/W Dr. Garcia, 09/12/2018 by phone, covering for his cloth mercerizer operator Dr. Flores. 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 * Resolved per f/u labs on 09/19 (135) Dilated cardiomyopathy of unclear etiology. * Continue amiodarone, metoprolol and spironolactone. * Systolic blood pressure is consistently above 110 as of 09/15/2018. Started valsartan as above. Reduced valsartan from 40 mg twice daily to 20 mg twice daily due to low blood pressures. * Discontinued valsartan evening of 09/20/2018 and initiated sacibitril/ valsartan combination per Cardiology recommendations * monitor BP's as have been 90's to 110's systolic Recent pacer/ICD placement. Placement 09/05/2018, lead replacement 09/06/2018. * Family is concerned about possible dislodgement of leads with recent near fall in which he caught himself with left arm. * Pacer pocket is intact with no signs or symptoms of dehiscence or infection. * Discussed with Cardiology PA David Ortega, 09/11/2018. Continue restrictions of not to raise arm above 90 degrees, 10 lb weight-bearing restriction; and advised to continue to use arm immobilizer at night due to impulsivity and memory loss, to ensure compliance. * Spoke to [employer] outside industrial sales representative, 09/11/2018, following advice of David Lord. [employer] rep came to rehabilitation unit 09/11/2018 and interrogated device. No malfunction. Low-grade fever, 09/12/2018. * UA normal. No sign of pocket infection. No cough, hypoxia or tachypnea. WBCs normal though monocytosis. Will get blood cultures if temperature gets above 100. History of urinary retention. Continue tamsulosin - if BP's continue to run low may need to discontinue to minimize BP effects. History of hyperthyroidism. TSH was mildly suppressed in the hospital, with normal free T4. * Normal TSH on 09/11/2018. Monitor for signs or symptoms of hyperthyroidism. Should have repeat TSH in 4-6 weeks. DVT prophylaxis. He is low risk for DVT, and high risk for fall which could result in a bleed. DISPOSITION: He has multiple stairs to climb in the home. Girlfriend is available 24 hr a day at present to assist although will be starting a new job. She has been encouraged to not accompany patient to therapy sessions and she tends to assist, which interferes with assessment and development of independence. Goal is functional independence for mobility and most ADLs for a safe discharge. As of 09/21/2017 it seems unlikely that girlfriend will be able to care for him at home due to his cognitive deficits. Possible discharge to neuro rehab [facility] in [facility], most likely on 09/24/2018. Follow-up : [facility]; Dr. Purvis. 09/23/18 10:37 Subjective: Overall patient is doing pretty well - no voicing any concerns of pain. Not having any lightheadedness/dizziness when mobilizing/changing positions. remains continent of bowel/bladder. Had a good conversation with pt's girlfriend regarding her concerns and decisions she is trying to make regarding going back to work. She is suppose to start a new job this coming Tuesday - deciding what is the best decision at this current time. Objective: Vital Signs Temp Pulse Resp BP Pulse Ox 98.1 F 85 12 94/58 L 94 09/23/18 07:34 09/23/18 09:28 09/23/18 07:34 09/23/18 09:28 09/23/18 07:34 Laboratory Results 09/19/18 04:56 09/19/18 04:56 09/22/18 09/23/18 09/24/18 05:59 05:59 05:59 Intake Total 2105 1135 Balance 2105 1135 Physical Exam - Physical Exam General Appearance: alert, no apparent distress, other (Walking around the unit with the PT - close supervision) EENT: PERRL/EOMI Respiratory: lungs clear, normal breath sounds Cardiac/Chest: regular rate, rhythm, other (No evidence of pocket infection) Abdomen: non-tender, soft Skin: normal color Extremities: other (no edema) Neuro/Psych: alert, other (Flat effect, Answers all basic questions appropriately ) ICD10 Worksheet Patient Problems: Problems Problem Status Onset Anoxic brain injury Acute
[2018-09-23] MEDS: SACUBITRIL/VALSARTAN 24/26MG 1 EA TAB PO SCH ×2 (10:03→21:05)
[2018-09-23] MEDS: AMIODARONE HCL 200 MG TAB PO SCH (10:04)
[2018-09-23] MEDS: METOPROLOL SUCCINATE XR 25 MG TAB PO SCH (10:04)
[2018-09-23] MEDS: SENNOSIDES/DOCUSATE SODIUM TAB PO SCH ×2 (10:10→21:05)
[2018-09-23] MEDS: SPIRONOLACTONE 25 MG TAB PO SCH (10:10)
[2018-09-23] MEDS: TAMSULOSIN HCL 0.4 MG CAP PO SCH (21:03)
[2018-09-23] MEDS: MELATONIN 3 MG TAB PO PRN (21:04)
--- NOTE | 2018-09-24 09:25 | PDOREHIP ---
Admission [facility] - Admission - 3 Day Assessment Period Admission Date/Day 1: 09/07/18 Day 2: 09/08/18 Day 3: 09/09/18 - Active Diagnoses Comorbidities and Co-existing Conditions at Admission: 13119. None of the Above Discharge [facility] - Discharge - 3 Day Assessment Period 2 Days Prior to Anticipated Discharge Date: 09/22/18 1 Day Prior to Anticipated Discharge Date: 09/23/18 Anticipated Discharge Date: 09/24/18 - Discharge Skin Conditions Unhealed Pressure Ulcer (1 or more/Stage 1 or >)-Discharge: 0. No # Stage 1 Pressure Ulcers-Discharge: 0 # Stage 2 Pressure Ulcers-Discharge: 0 # of These Stage 2 Pressure Ulcers Present on Admission: 0 # Stage 3 Pressure Ulcers-Discharge: 0 # of These Stage 3 Pressure Ulcers Present on Admission: 0 # Stage 4 Pressure Ulcers-Discharge: 0 # of These Stage 4 Pressure Ulcers Present on Admission: 0 # Unstageable Pressure Ulcers (Non-remove Dress)-Discharge: 0 # These Unstageable Pressure Ulcers (NRD)-Present on Admit: 0 # Unstageable Pressure Ulcers (Slough/Eschar)-Discharge: 0 # These Unstageable Pressure Ulcers(Slough) Present on Admit: 0 # Unstageable Pressure Ulcers (Deep Tissue Injury)-Discharge: 0 # These Unstageable Pressure Ulcers (DTI) Present on Admit: 0
--- NOTE | 2018-09-24 09:26 | SOAPPROG ---
SOAP Progress Note Assessment/Plan: Assessment/Plan: Hypoxic/ischemic encephalopathy with ataxia, due to ventricular fibrillation cardiac arrest on 08/22/2018. * Initial functional independence measure is 52 on 09/11/2018, improved to 84 as of 09/18/2018. Independent with toileting. Contact guard assist for transfers. Supervision for bed mobility. Ambulated 1500 ft outside with no device with standby assist to contact guard assist. Climbed and descended 12 stairs with 2 rails, contact guard assist. In his room he needed cues to keep his walker close. ADLs were done with supervision. Continues to have ataxia. * Continue PT and OT to optimize mobility and activities of daily living. 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 * Global memory loss including short-term working and some long-term memory loss. Has some retention of events from previous day. Attention seems to be intact. He is impulsive and has reduced insight. * Passed OLOG 09/19/2018 and 09/20/2018, with improved insight. 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 Left upper extremity tenderness and swelling, 09/14/2018. * US showed DVT subclavian, axial, basilic and brachial veins. Girlfriend reported that he had lines in left arm in the hospital. * Treat with enoxaparin starting afternoon 09/14/2018. Transitioned to apixaban. Should continue for 3 months. * Continue immobilizer to left arm at night but strap around upper arm should not be tight. Discussed with nursing. Hypotension, unclear etiology, 09/12/2018- Continues to run lower although asymptomatic * slight worsening of anemia although repeat demonstrates stability * D/W Dr. Garcia, 09/12/2018 by phone, covering for his fabric worker Dr. Flores. 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 * Resolved per f/u labs on 09/19 (135) Dilated cardiomyopathy of unclear etiology. * Continue amiodarone, metoprolol and spironolactone. * Systolic blood pressure is consistently above 110 as of 09/15/2018. Started valsartan as above. Reduced valsartan from 40 mg twice daily to 20 mg twice daily due to low blood pressures. * Discontinued valsartan evening of 09/20/2018 and initiated sacubitril/ valsartan combination per Cardiology recommendations. * monitor BP's as have been 90's to 110's systolic * Intermittent holding meds when Systolic is <100 * Will need to call Cards on Tuesday to clarify any hold parameters Recent pacer/ICD placement. Placement 09/05/2018, lead replacement 09/06/2018. * Family is concerned about possible dislodgement of leads with recent near fall in which he caught himself with left arm. * Pacer pocket is intact with no signs or symptoms of dehiscence or infection. * Discussed with Cardiology PA David Ortega, 09/11/2018. Continue restrictions of not to raise arm above 90 degrees, 10 lb weight-bearing restriction; and advised to continue to use arm immobilizer at night due to impulsivity and memory loss, to ensure compliance. * Spoke to [employer] inside technical sales representative, 09/11/2018, following advice of David Lord. [employer] rep came to rehabilitation unit 09/11/2018 and interrogated device. No malfunction. Low-grade fever, 09/12/2018 - Resolved * UA normal. No sign of pocket infection. No cough, hypoxia or tachypnea. WBCs normal though monocytosis. Will get blood cultures if temperature gets above 100. History of urinary retention. Continue tamsulosin - if BP's continue to run low may need to discontinue to minimize BP effects. Will need to discuss with Cards on Tuesday to determine impact with other BP meds History of hyperthyroidism. TSH was mildly suppressed in the hospital, with normal free T4. * Normal TSH on 09/11/2018. Monitor for signs or symptoms of hyperthyroidism. Should have repeat TSH in 4-6 weeks. DVT prophylaxis. He is low risk for DVT, and high risk for fall which could result in a bleed. DISPOSITION: He has multiple stairs to climb in the home. Girlfriend is available 24 hr a day at present to assist although will be starting a new job. She has been encouraged to not accompany patient to therapy sessions and she tends to assist, which interferes with assessment and development of independence. Goal is functional independence for mobility and most ADLs for a safe discharge. As of 09/21/2017 it seems unlikely that girlfriend will be able to care for him at home due to his cognitive deficits. Possible discharge to neuro rehab [facility] in [facility], most likely on 09/24/2018. Follow-up : [facility]; Dr. Purvis. 09/24/18 09:26 Subjective: DOing well today. No new pains - no new changes in neurologic presentation. Tolerating PO well. No incontinence per pt/girlfriend. No lightheadedness, no dizziness reported. no chest pain/ no palpitations. No fevers/chills Objective: Vital Signs Temp Pulse Resp BP Pulse Ox 98.2 F 79 16 99/59 L 95 09/23/18 21:00 09/23/18 21:00 09/23/18 21:00 09/23/18 21:05 09/23/18 21:00 Laboratory Results 09/19/18 04:56 09/19/18 04:56 09/23/18 09/24/18 09/25/18 05:59 05:59 05:59 Intake Total 1135 1460 Balance 1135 1460 Physical Exam - Physical Exam General Appearance: alert, no apparent distress, other (Resting in bed watching TV - girlfriend at his side) EENT: PERRL/EOMI Respiratory: lungs clear, normal breath sounds Cardiac/Chest: regular rate, rhythm Abdomen: normal bowel sounds, non-tender, soft Skin: other (Over left chest wall - pacemaker - No redness/no fluctuance, well healing/healed) Neuro/Psych: alert (Flat affect. Answers questions with very concrete answers) ICD10 Worksheet Patient Problems: Problems Problem Status Onset Anoxic brain injury Acute
[2018-09-24] MEDS: METOPROLOL SUCCINATE XR 25 MG TAB PO SCH (10:00)
[2018-09-24] MEDS: SACUBITRIL/VALSARTAN 24/26MG 1 EA TAB PO SCH (10:01)
[2018-09-24] MEDS: SENNOSIDES/DOCUSATE SODIUM TAB PO SCH (10:01)
[2018-09-24] MEDS: AMIODARONE HCL 200 MG TAB PO SCH (10:02)
[2018-09-24] MEDS: SPIRONOLACTONE 25 MG TAB PO SCH (10:02)
[2018-09-24] MEDS: APIXABAN 5 MG TAB PO SCH (10:03)
[2018-09-24] MEDS: MAGNESIUM OXIDE 400 MG TAB PO SCH (10:03)
[2018-09-24 10:05] VITALS: BP 104/65
== END 2018-09-24 13:47 | DRG 91 ==
LOC: F3N 16:55 → F3E 17:08
PROVIDERS: ADMIT Physical Medicine & Rehabilitation; ATTEND Internal Medicine Hospice and Palliative Medicine
PROC: F08Z7ZZ Vocational Activities and Functional Community or Work Reintegration Skills Treatment (ICD-10-PCS; principal; 2018-09-07)
PROC: F0636ZZ Communicative/Cognitive Integration Skills Treatment of Neurological System - Whole Body (ICD-10-PCS; principal; 2018-09-07)
PROC: F07M3ZZ Motor Function Treatment of Musculoskeletal System - Whole Body (ICD-10-PCS; principal; 2018-09-07)
DX: G93.1 Anoxic brain damage, not elsewhere classified (principal); I46.2 Cardiac arrest due to underlying cardiac condition; I42.0 Dilated cardiomyopathy; G93.49 Other encephalopathy; E87.1 Hypo-osmolality and hyponatremia; I82.602 Acute embolism and thrombosis of unspecified veins of left upper extremity; I47.2 Ventricular tachycardia; I49.01 Ventricular fibrillation; H47.619 Cortical blindness, unspecified side of brain; R33.9 Retention of urine, unspecified; E05.90 Thyrotoxicosis, unspecified without thyrotoxic crisis or storm; Z95.810 Presence of automatic (implantable) cardiac defibrillator
CPT/HCPCS: 92507-GN; 92523-GN; 92610-GN; 97110-GO; 97110-GP; 97112-GO; 97112-GP; 97116-GP; 97161-GP; 97166-GO; 97530-GO; 97530-GP; 97535-GO; G0515-GO; J1650

== ENCOUNTER 2018-11-03 21:17 | Emergency (ER) | payer BC | END 2018-11-03 22:21 | disposition home or self-care (01) ==